=== PATIENT | male | born 1990 | race Caucasian/White ===

== ENCOUNTER 2016-07-24 13:29 | Emergency (ER) | payer OTHER ==
[2016-07-24 13:53] VITALS: RESP 18
--- NOTE | 2016-07-24 14:11 | ED ---
Psych HPI - General Chief Complaint: Psychiatric Symptoms Stated Complaint: Meth/Mental Health Time Seen by Provider: 07/24/16 14:03 Source: patient, family, RN notes reviewed Mode of arrival: ambulatory - History of Present Illness Initial Comments: 25 yo male presents to the ER with cc of drug use. Patient does drugs multiple types of drugs to help him to handle his issues with his brain. Patient cannot elaborate on this. The aunt the patient does have some psychiatric issues and the patient does have some hallucinations. Patient denies this he's never seen a counselor psychiatrist. He is never been admitted mentally. Patient was concerned because he just seems to be off so they thought that they should be evaluated. Patient denies any recent fever, chills, shortness of breath, chest pain, back pain, abdominal pain, nausea vomiting, numbness or tingling, dysuria or hematuria, constipation or diarrhea, headaches or visual changes, or any other current symptoms. - Related Data Home Medications Medication Instructions Recorded Confirmed No Known Home Medications [No 07/24/16 07/24/16 Known Home Medications] Allergies Allergy/AdvReac Type Severity Reaction Status Date / Time No Known Allergies Allergy Verified 07/24/16 14:21 Review of Systems ROS Statement: Those systems with pertinent positive or pertinent negative responses have been documented in the HPI. ROS Other: All systems not noted in ROS Statement are negative. Past Medical History Additional Past Medical History / Comment(s): LOWER BACK PROBLEMS History of Any Multi-Drug Resistant Organisms: None Reported Past Surgical History: No Surgical Hx Reported Past Psychological History: ADD/ADHD Smoking Status: Current every day smoker Past Alcohol Use History: Daily Past Drug Use History: Methamphetamine General Exam General appearance: alert, in no apparent distress ENT exam: Present: normal exam, mucous membranes moist Neck exam: Present: normal inspection. Absent: tenderness, meningismus, lymphadenopathy Respiratory exam: Present: normal lung sounds bilaterally. Absent: respiratory distress, wheezes, rales, rhonchi, stridor Cardiovascular Exam: Present: regular rate, normal rhythm, normal heart sounds. Absent: systolic murmur, diastolic murmur, rubs, gallop, clicks Neurological exam: Present: alert, oriented X3 Psychiatric exam: Present: agitated, anxious Skin exam: Present: warm, dry, intact, normal color. Absent: rash Course Vital Signs 07/24/16 13:46 Temperature 98.8 F Pulse Rate 116 H Respiratory 18 Rate Blood Pressure 124/82 O2 Sat by Pulse 100 Oximetry Medical Decision Making - Medical Decision Making 25-year-old male presents for drug abuse and psychological issues. He denies any homicidal or suicidal ideation. At this time patient is cleared to be evaluated by psychiatry. At this time patient was evaluated by psychiatry. He still denies any homicidal or suicidal ideation. Patient is alert and oriented. We did discuss the need for drug rehab. We did discuss return parameters and follow-up. Patient does contract to taking all questions have been answered. He will be discharged. - Lab Data Lab Results 07/24/16 Range/Units 13:55 Urine Opiates Screen Not Detected (NotDetected) Ur Oxycodone Screen Not Detected (NotDetected) Urine Methadone Screen Not Detected (NotDetected) Ur Propoxyphene Screen Not Detected (NotDetected) Ur Barbiturates Screen Not Detected (NotDetected) U Tricyclic Antidepress Not Detected (NotDetected) Ur Phencyclidine Scrn Not Detected (NotDetected) Ur Amphetamines Screen Detected H (NotDetected) U Methamphetamines Scrn Detected H (NotDetected) U Benzodiazepines Scrn Detected H (NotDetected) Urine Cocaine Screen Detected H (NotDetected) U Marijuana (THC) Screen Detected H (NotDetected) Disposition Clinical Impression: Polysubstance abuse Disposition: HOME SELF-CARE Condition: Stable Instructions: Polysubstance Abuse (ED) Additional Instructions: Please use medication as discussed. Please follow up with family doctor if symptoms have not improved over the next two days. Please return to the emergency room if your symptoms increase or worsen or for any other concerns. Referrals: Lu Pereira MD [STAFF PHYSICIAN] - 1-2 days Time of Disposition: 16:41
[2016-07-24 17:02] VITALS: BP 130/77; PULSE 90; TEMP 97.5
== END 2016-07-24 17:10 | disposition home or self-care (01) ==
LOC: EC 13:29
DX: F19.19 Other psychoactive substance abuse with unspecified psychoactive substance-induced disorder (principal); F17.200 Nicotine dependence, unspecified, uncomplicated
CPT/HCPCS: 80306; 82075; 99284

== ENCOUNTER 2017-08-16 12:36 | Inpatient (IN) | payer OTHER ==
[2017-08-16] MEDS ORDERED: LORazepam 2 MG/ML INJ IV STA ×2 (13:10→16:29)
[2017-08-16 13:37] LABS: Basophils % (A) 0 %; Eosinophils # (A) 0.1 k/uL (0-0.7); Eosinophils % (A) 1 %; HCT 46.6 % (39.0-53.0); HGB 16.3 gm/dL (13.0-17.5); Lymphocytes # (A) 1.5 k/uL (1.0-4.8); Lymphocytes % (A) 8 %; MCH 31.1 pg (25.0-35.0); MCHC 35.1 g/dL (31.0-37.0); MCV 88.6 fL (80.0-100.0); Mean Platelet Volume 7.1; Monocytes # (A) 1.5 k/uL (0-1.0); Monocytes % (A) 8 %; Neutrophils # (A) 16.2 k/uL (1.3-7.7); Neutrophils % (A) 83 %; Platelet Count 211 k/uL (150-450); RBC 5.25 m/uL (4.30-5.90); RDW 13.9 % (11.5-15.5); WBC 19.5 k/uL (3.8-10.6)
--- NOTE | 2017-08-16 13:43 | ED ---
General Adult HPI - General Chief complaint: Overdose Stated complaint: Overdose Time Seen by Provider: 08/16/17 13:05 Source: patient, EMS Mode of arrival: EMS Limitations: altered mental status - History of Present Illness Initial comments: This is a 27-year-old male who presents emergency department for left-sided chest pain. The patient admits to smoking meth today around 4:30 this morning. He states that when he woke up he had some left-sided chest pain. He states that it's worse with movement and palpation. He denies any associated shortness of breath. No lightheadedness or syncope. States he does not have any pain in his abdomen. No nausea, vomiting, or diarrhea. He is concerned that the meth may have been laced with some other drug so he came in emergency department. He does not admit to any other ingestions. The patient does have a history of drug abuse past. - Related Data Previous Rx's Medication Instructions Recorded Dicyclomine [Bentyl] 20 mg PO QID #20 tablet 06/22/17 Allergies Allergy/AdvReac Type Severity Reaction Status Date / Time No Known Allergies Allergy Verified 06/22/17 09:38 Review of Systems ROS Statement: Those systems with pertinent positive or pertinent negative responses have been documented in the HPI. ROS Other: All systems not noted in ROS Statement are negative. Past Medical History Additional Past Medical History / Comment(s): LOWER BACK PROBLEMS History of Any Multi-Drug Resistant Organisms: None Reported Past Surgical History: No Surgical Hx Reported Past Psychological History: ADD/ADHD Smoking Status: Current every day smoker Past Alcohol Use History: Daily Past Drug Use History: Methamphetamine General Exam - General Exam Comments Initial Comments: Constitutional: The patient is awake however will only answer questions intermittently, he is constantly moving and tremulous Appears comfortable Head: Normocephalic atraumatic, multiple superficial abrasions to the forehead and face Eyes: no conjunctival injection No scleral icterus EOMI Neck: No JVD Supple Heart: Tachycardia with regular rhythm normal S1-S2 no murmurs, there is tenderness to palpation along the left chest wall Lungs: Clear to auscultation bilaterally No wheezing No rales Abdomen: Soft nondistended nontender Extremities: Non edematous DP pulses intact Radial pulses intact Neuro: Patient is awake and arousable however only answers questions intermittently, tremulous, moves all extremities spontaneously No focal neurologic deficits Psych: Appropriate mood and affect Limitations: altered mental status Course Vital Signs 08/16/17 08/16/17 08/16/17 12:45 13:30 14:00 Temperature 100.7 F H Pulse Rate 121 H 127 H 74 Respiratory 20 18 20 Rate Blood Pressure 170/80 176/81 167/72 O2 Sat by Pulse 95 100 99 Oximetry 08/16/17 08/16/17 15:01 15:56 Temperature 100.5 F H 101.7 F H Pulse Rate 133 H 122 H Respiratory 21 24 Rate Blood Pressure 163/102 171/74 O2 Sat by Pulse 97 96 Oximetry - Reevaluation(s) Reevaluation #1: 08/16/17 15:43 Patient continues to be tremulous and agitated. Does complain of a little bit of a headache. I discussed lumbar puncture with the patient at length however he states he does not want have any of this done. He had a straight cath for urine and did not tolerate that. States he does not want any other procedures performed. The patient will be started on antibiotics due to her low-grade fever and leukocytosis with tachycardia. EKG Findings - EKG Comments: EKG Findings:: EKG showing sinus tachycardia with a rate of 104. There is no abnormal ST segment changes or T-wave inversions. QTC is 383. Other intervals normal. No ectopy. Medical Decision Making - Medical Decision Making This is a 27-year-old male who presents emergency department for left-sided chest pain. The patient was found to be febrile tachycardic. He does have some mental status changes however is able to tell me where he is in the year. He is able to repeat back without been discussing with him. I had multiple discussions with him regarding a possible lumbar puncture. The patient states that he does not want to have this performed. I discussed the risks of not having it done and not knowing if there was some type of [employer] infection and he stated he understood the risks and still did not want to have it performed. At this time going to admit him to the hospital for further monitoring. He was started on vancomycin and Rocephin empirically. Dr. Montaño who accepts the admission. Admission orders were placed. - Lab Data Result diagrams: 08/16/17 13:20 08/16/17 13:20 Lab Results 08/16/17 08/16/17 08/16/17 Range/Units 13:20 13:20 13:20 WBC 19.5 H (3.8-10.6) k/uL RBC 5.25 (4.30-5.90) m/uL Hgb 16.3 (13.0-17.5) gm/dL Hct 46.6 (39.0-53.0) % MCV 88.6 (80.0-100.0) fL MCH 31.1 (25.0-35.0) pg MCHC 35.1 (31.0-37.0) g/dL RDW 13.9 (11.5-15.5) % Plt Count 211 (150-450) k/uL Neutrophils % 83 % Lymphocytes % 8 % Monocytes % 8 % Eosinophils % 1 % Basophils % 0 % Neutrophils # 16.2 H (1.3-7.7) k/uL Lymphocytes # 1.5 (1.0-4.8) k/uL Monocytes # 1.5 H (0-1.0) k/uL Eosinophils # 0.1 (0-0.7) k/uL Basophils # 0.0 (0-0.2) k/uL PT 10.5 (9.0-12.0) sec INR 1.1 (<1.2) APTT 25.0 (22.0-30.0) sec Sodium 141 (137-145) mmol/L Potassium 3.8 (3.5-5.1) mmol/L Chloride 98 (98-107) mmol/L Carbon Dioxide 26 (22-30) mmol/L Anion Gap 17 mmol/L BUN 17 (9-20) mg/dL Creatinine 0.99 (0.66-1.25) mg/dL Est GFR (CKD-EPI)AfAm >90 (>60 ml/min/1.73 sqM) Est GFR (CKD-EPI)NonAf >90 (>60 ml/min/1.73 sqM) Glucose 98 (74-99) mg/dL Plasma Lactic Acid Jessu (0.7-2.0) mmol/L Calcium 10.1 (8.4-10.2) mg/dL Total Bilirubin 4.9 H (0.2-1.3) mg/dL AST 69 H (17-59) U/L ALT 116 H (21-72) U/L Alkaline Phosphatase 56 (38-126) U/L Troponin I (0.000-0.034) ng/mL Total Protein 8.3 H (6.3-8.2) g/dL Albumin 5.0 (3.5-5.0) g/dL Urine Color Urine Appearance (Clear) Urine pH (5.0-8.0) Ur Specific [place] (1.001-1.035) Urine Protein (Negative) Urine Glucose (UA) (Negative) Urine Ketones (Negative) Urine Blood (Negative) Urine Nitrite (Negative) Urine Bilirubin (Negative) Urine Urobilinogen (<2.0) mg/dL Ur Leukocyte Esterase (Negative) Urine RBC (0-5) /hpf Urine WBC (0-5) /hpf Urine Mucus (None) /hpf Salicylates <1.0 mg/dL Urine Opiates Screen (NotDetected) Ur Oxycodone Screen (NotDetected) Urine Methadone Screen (NotDetected) Ur Propoxyphene Screen (NotDetected) Acetaminophen <10.0 ug/mL Ur Barbiturates Screen (NotDetected) U Tricyclic Antidepress (NotDetected) Ur Phencyclidine Scrn (NotDetected) Ur Amphetamines Screen (NotDetected) U Methamphetamines Scrn (NotDetected) U Benzodiazepines Scrn (NotDetected) Urine Cocaine Screen (NotDetected) U Marijuana (THC) Screen (NotDetected) 08/16/17 08/16/17 08/16/17 Range/Units 13:20 13:20 15:05 WBC (3.8-10.6) k/uL RBC (4.30-5.90) m/uL Hgb (13.0-17.5) gm/dL Hct (39.0-53.0) % MCV (80.0-100.0) fL MCH (25.0-35.0) pg MCHC (31.0-37.0) g/dL RDW (11.5-15.5) % Plt Count (150-450) k/uL Neutrophils % % Lymphocytes % % Monocytes % % Eosinophils % % Basophils % % Neutrophils # (1.3-7.7) k/uL Lymphocytes # (1.0-4.8) k/uL Monocytes # (0-1.0) k/uL Eosinophils # (0-0.7) k/uL Basophils # (0-0.2) k/uL PT (9.0-12.0) sec INR (<1.2) APTT (22.0-30.0) sec Sodium (137-145) mmol/L Potassium (3.5-5.1) mmol/L Chloride (98-107) mmol/L Carbon Dioxide (22-30) mmol/L Anion Gap mmol/L BUN (9-20) mg/dL Creatinine (0.66-1.25) mg/dL Est GFR (CKD-EPI)AfAm (>60 ml/min/1.73 sqM) Est GFR (CKD-EPI)NonAf (>60 ml/min/1.73 sqM) Glucose (74-99) mg/dL Plasma Lactic Acid Jesus 1.3 (0.7-2.0) mmol/L Calcium (8.4-10.2) mg/dL Total Bilirubin (0.2-1.3) mg/dL AST (17-59) U/L ALT (21-72) U/L Alkaline Phosphatase (38-126) U/L Troponin I <0.012 (0.000-0.034) ng/mL Total Protein (6.3-8.2) g/dL Albumin (3.5-5.0) g/dL Urine Color Yellow Urine Appearance Clear (Clear) Urine pH 5.5 (5.0-8.0) Ur Specific [place] 1.026 (1.001-1.035) Urine Protein 2+ H (Negative) Urine Glucose (UA) Negative (Negative) Urine Ketones 3+ H (Negative) Urine Blood Trace H (Negative) Urine Nitrite Negative (Negative) Urine Bilirubin Negative (Negative) Urine Urobilinogen <2.0 (<2.0) mg/dL Ur Leukocyte Esterase Negative (Negative) Urine RBC <1 (0-5) /hpf Urine WBC 1 (0-5) /hpf Urine Mucus Occasional H (None) /hpf Salicylates mg/dL Urine Opiates Screen Not Detected (NotDetected) Ur Oxycodone Screen Not Detected (NotDetected) Urine Methadone Screen Not Detected (NotDetected) Ur Propoxyphene Screen Not Detected (NotDetected) Acetaminophen ug/mL Ur Barbiturates Screen Not Detected (NotDetected) U Tricyclic Antidepress Not Detected (NotDetected) Ur Phencyclidine Scrn Not Detected (NotDetected) Ur Amphetamines Screen Detected H (NotDetected) U Methamphetamines Scrn Detected H (NotDetected) U Benzodiazepines Scrn Not Detected (NotDetected) Urine Cocaine Screen Not Detected (NotDetected) U Marijuana (THC) Screen Not Detected (NotDetected) Disposition Clinical Impression: SIRS (systemic inflammatory response syndrome), Methamphetamine abuse Disposition: ADMITTED IP TO THIS HOSP Condition: Stable
[2017-08-16 13:46] LABS: INR 1.1 (<1.2); Prothrombin Time 10.5 sec (9.0-12.0)
[2017-08-16 13:48] LABS: ALT 116 U/L (21-72); AST 69 U/L (17-59); Acetaminophen <10.0 ug/mL; Alkaline Phosphatase 56 U/L (38-126); Anion Gap 17 mmol/L; Blood Urea Nitrogen 17 mg/dL (9-20); Calcium 10.1 mg/dL (8.4-10.2); Carbon Dioxide 26 mmol/L (22-30); Chloride 98 mmol/L (98-107); Glucose 98 mg/dL (74-99); Potassium 3.8 mmol/L (3.5-5.1); Salicylate <1.0 mg/dL; Sodium 141 mmol/L (137-145); Total Bilirubin 4.9 mg/dL (0.2-1.3); Total Protein 8.3 g/dL (6.3-8.2)
--- NOTE | 2017-08-16 14:43 | XR ---
EXAMINATION TYPE: XR chest 2V DATE OF EXAM: 08/16/2017 COMPARISON: NONE INDICATION: Chest pain TECHNIQUE: Frontal and lateral views of the chest are obtained. FINDINGS: The heart size is normal. The pulmonary vasculature is normal. The lungs are clear. Degree of inspiration is somewhat limited but adequate for the study. IMPRESSION: 1. No acute pulmonary process.
--- NOTE | 2017-08-16 14:56 | CT ---
EXAMINATION TYPE: CT brain wo con DATE OF EXAM: 08/16/2017 COMPARISON: 11/30/2012 HISTORY: Overdose. Altered mental status. Pt uncooperative and unwilling to listen to direction. CT DLP: 2284.[address] of the brain was performed. The ventricles, basal cisterns and sulci overlying the cerebral convexities demonstrate a normal appe arance. There is no evidence for intracranial hemorrhage or sulcal effacement. No mass effects are seen. Osseous calvarium is intact. If symptoms persist consider MRI as clinically warranted. IMPRESSION: 1. No acute intracranial process is seen at this time.
[2017-08-16] MEDS ORDERED: KETOROLAC 30 MG/ML 1 ML VIAL IVP STA (15:02)
[2017-08-16 15:19] LABS: Appearance,Urine Clear (Clear); Bilirubin,Urine Negative (Negative); Blood,Urine Trace (Negative); Color,Urine Yellow; Glucose,Urine (UA) Negative (Negative); Ketones,Urine 3+ (Negative); Leukocyte Esterase,Urine Negative (Negative); Mucus,Urine Occasional /hpf; Nitrite,Urine Negative (Negative); PH, Urine 5.5 (5.0-8.0); Protein,Urine 2+ (Negative); RBC,Urine <1 /hpf (0-5); Specific Gravity,Urine 1.026 (1.001-1.035); Urobilinogen,Urine <2.0 mg/dL (<2.0); WBC,Urine 1 /hpf (0-5)
[2017-08-16] MEDS ORDERED: VANCOMYCIN IV PER PHARMACY 1 EACH MISC MISCELLANE PRN (15:26)
[2017-08-16 15:27] LABS: Cocaine Screen,Urine Not Detected (NotDetected); Phencyclidine Screen,Urine Not Detected (NotDetected); Urn Cannabinoid Scrn Not Detected (NotDetected)
[2017-08-16 15:28] LABS: Amphetamine Screen,Urine Detected (NotDetected); Barbiturate Screen,Urine Not Detected (NotDetected); Benzodiazepines Screen,Urine Not Detected (NotDetected); Methadone Screen, Urine Not Detected (NotDetected); Opiate Screen,Urine Not Detected (NotDetected); Oxycodone Screen, Urine Not Detected (NotDetected); Tricyclic Antidepressant,Urine Not Detected (NotDetected)
[2017-08-16] MEDS ORDERED: SODIUM CHLORIDE 0.9% 1,000 ML IV ONE (15:28)
[2017-08-16] MEDS ORDERED: VANCOMYCIN 1,500 MG in SODIUM CHLORIDE 0.9% 250 ML IVPB STA (15:30)
[2017-08-16] MEDS ORDERED: cefTRIAXone IN SWFI 1,000 MG/10 ML SYRINGE IVP ONE (15:30)
[2017-08-16] MEDS ORDERED: ACETAMINOPHEN IV (For NPO) 1,000 MG in EMPTY BAG 1 BAG IVPB STA (15:54)
[2017-08-16 16:09] LABS: Glucose,Whole Blood 107 mg/dL (75-99)
[2017-08-16] MEDS: SODIUM CHLORIDE 0.9% 1,000 ML IV SCH (16:34)
[2017-08-16] MEDS ORDERED: HALOPERIDOL LACTATE 5 MG/ML 1 ML VIAL IVP STA (18:43)
[2017-08-16] MEDS: FAMOTIDINE 20 MG TAB PO SCH (22:14)
[2017-08-17] MEDS: VANCOMYCIN 1,500 MG in SODIUM CHLORIDE 0.9% 250 ML IVPB SCH ×2 (00:50→08:02)
[2017-08-17] MEDS: SODIUM CHLORIDE 0.9% 1,000 ML IV SCH ×4 (00:54→18:45)
[2017-08-17 06:00] LABS: Basophils % (A) 0 %; Eosinophils # (A) 0.1 k/uL (0-0.7); Eosinophils % (A) 1 %; HCT 42.7 % (39.0-53.0); HGB 14.8 gm/dL (13.0-17.5); Lymphocytes # (A) 1.5 k/uL (1.0-4.8); Lymphocytes % (A) 16 %; MCH 31.5 pg (25.0-35.0); MCHC 34.6 g/dL (31.0-37.0); MCV 90.9 fL (80.0-100.0); Mean Platelet Volume 7.2; Monocytes % (A) 11 %; Neutrophils # (A) 6.4 k/uL (1.3-7.7); Neutrophils % (A) 69 %; Platelet Count 170 k/uL (150-450); RBC 4.69 m/uL (4.30-5.90); WBC 9.3 k/uL (3.8-10.6)
[2017-08-17 06:14] LABS: Anion Gap 10 mmol/L; Blood Urea Nitrogen 19 mg/dL (9-20); Carbon Dioxide 27 mmol/L (22-30); Chloride 104 mmol/L (98-107); Glucose 75 mg/dL (74-99); Potassium 4.1 mmol/L (3.5-5.1); Sodium 141 mmol/L (137-145)
[2017-08-17 06:28] VITALS: BMI 29.3
[2017-08-17] MEDS: FAMOTIDINE 20 MG TAB PO SCH ×2 (08:02→19:44)
[2017-08-17] MEDS ORDERED: cefTRIAXone IN SWFI 1,000 MG/10 ML SYRINGE IVP SCH (09:00)
[2017-08-17] MEDS ORDERED: KETOROLAC 30 MG/ML 1 ML VIAL IVP STA (12:00)
--- NOTE | 2017-08-17 14:24 | P.CONS ---
History of Present Illness - Reason for Consult Consult date: 08/17/17 - Chief Complaint fever - History of Present Illness 27 year old male presents to the emergency center with a sudden onset of lower left-sided chest pain and because it did not improve who presented to the emergency center. Patient relates that several hours before the onset of the pain he did utilize Crystal methamphetamine. He is a frequent user of the drug. This is however the first time he's had such a significant reaction.Because the discomfort was persistent he presented to the emergency center. At that time he had evidence of some fever 101.7 was tachycardic and was evidence of a leukocytosis. Because of this he was concerns to underlying infection and sepsis. Apparently when he first presented there was also some concerns about the possibility of a central nervous system infection and lumbar puncture was offered which he refused. He was not able to provide a urine specimen and a straight cath specimen was obtained. After that the patient does not want any further invasive procedures. At the time of his evaluation he is feeling considerably better. Fever has resolved. His leukocytosis is starting to improve her ready and he is hemodynamically stable. Only complaint is that with utilization of the Crystal methamphetamine is he is having some oral cavity and carious tooth difficulties, concerned that there could be a potential source of infection. Review of Systems HEENT:Denies headache or acute visual change. Denies sinus discomforts. Denies neck stiffness or pain. Denies significant oral cavity pain. Denies difficulty on swallowing.as per the HPI does have difficulties with tooth problems Lungs: he as noted was having chest pain which is now improving. is not having cough or sputum production no hemoptysis. Cardiovascular: currently has improvement of the chest pain. No orthopnea dyspnea or syncope. Gastrointestinal:Denies nausea, vomiting, diarrhea, constipation, hematemesis, melena, hematochezia. No no significant change of bowel habit noticed. Musculoskeletal: denies significant myalgias or arthralgias. No new joint swelling. Denies new back pain. Skin: Denies new rash or lesions. No new ulcers or wounds are related.. Neuro: Denies headache or visual change. Denies any new onset weakness or difficulty with ambulation. Denies falls or seizures. Psychiatric:chronic anxiety Endocrine: Denies significant fatigue, denies significant weight loss or weight gain. Past Medical History Additional Past Medical History / Comment(s): LOWER BACK PROBLEMS History of Any Multi-Drug Resistant Organisms: None Reported Past Surgical History: No Surgical Hx Reported Past Psychological History: ADD/ADHD Additional Psychological History / Comment(s): originally from [place]. He came to [place] to be with his grandmother. He has a 3-year-old child that lives with his mother in [place]. Works for [employer]. Tobacco smoker. Utilize crystal methamphetamine denies heroin or other injection drug use. Denies current sex partner. Denies alcohol abuse. No experience. No travel history. No animal exposures Smoking Status: Current every day smoker Past Alcohol Use History: Daily Past Drug Use History: Methamphetamine - Past Family History Mother Family Medical History: No Reported History Medications and Allergies Home Medications and Allergies Comment(s): Current Medications Ceftriaxone Sodium (Rocephin) 1,000 mg IVP Q24HR [facility] Last Admin: 08/17/17 08:02 Dose: 1,000 mg Famotidine (Pepcid) 20 mg PO BID [facility] Last Admin: 08/17/17 08:02 Dose: 20 mg Vancomycin HCl 1,500 mg/ (Sodium Chloride) 250 mls @ 125 mls/hr IVPB Q8HR [facility] Last Admin: 08/17/17 08:02 Dose: 125 mls/hr Sodium Chloride (Saline 0.9%) 1,000 mls @ 150 mls/hr IV .Q6H40M [facility] Last Admin: 08/17/17 12:06 Dose: 150 mls/hr Miscellaneous Information (Vancomycin Trough Due) 0 each MISCELLANE DIRECTED ONE Stop: 08/18/17 07:01 Home Medications Medication Instructions Recorded Confirmed Type No Known Home Medications [No 08/16/17 08/16/17 History Known Home Medications] Allergies Allergy/AdvReac Type Severity Reaction Status Date / Time No Known Allergies Allergy Verified 06/22/17 09:38 Physical Exam Vitals: Vital Signs Temp Pulse Pulse Resp BP BP Pulse Ox 08/17/17 12:00 98.4 F 97 16 117/71 94 L 08/17/17 08:00 99.2 F 107 H 16 118/76 94 L 08/17/17 04:45 98.2 F 94 18 107/58 94 L 08/17/17 02:30 86 18 08/16/17 22:30 97.4 F L 91 18 117/69 97 08/16/17 22:00 99.3 F 92 16 115/56 98 08/16/17 19:57 99.0 F 103 H 16 122/58 97 08/16/17 19:29 103 H 20 123/59 98 08/16/17 18:52 133 H 24 140/68 99 08/16/17 17:31 99.9 F H 134 H 20 142/77 96 08/16/17 17:07 100.6 F H 08/16/17 16:58 118 H 22 147/77 97 08/16/17 16:15 125 H 24 154/73 96 08/16/17 15:56 101.7 F H 122 H 24 171/74 96 08/16/17 15:01 100.5 F H 133 H 21 163/102 97 Intake and Output 08/16/17 08/17/17 08/17/17 22:59 06:59 14:59 Intake Total 1440 2445 Output Total 350 Balance -350 1440 2445 Intake: Intake, IV Titration 1200 1325 Amount Sodium Chloride 0.9% 1, 1200 1200 000 ml @ 150 mls/hr IV . Q6H40M [facility]YUDMILA Rx#:[id number] Vancomycin 1,500 mg In 125 Sodium Chloride 0.9% 250 ml @ 125 mls/hr IVPB Q8HR LYUDMILA Rx#:[id number] Oral 240 1120 Output: Urine 350 Straight 350 Other: Voiding Method Toilet Toilet Toilet # Voids 3 Weight 95.5 kg 95.5 kg 27-year-old male who has a muscular build, is in no distress HEENT: Anicteric conjunctiva are pink and moist nasal mucosa grossly intact without significant lesions, there is no thrush.dentition is poor for age fractured carious right lower molar Neck: The neck is supple without significant lymphadenopathy or thyromegaly. Lungs: Good bilateral air entry without significant crackles or wheezing. There is no significant bronchial sounds. There is no egophony or dullness. Heart: Regular rate and rhythm with an audible S1-S2, no S3 no S4. There is no significant murmur click or rub, PMI was nondisplaced. Abdomen: Positive bowel sounds soft and nontender without palpable masses or organomegaly. There was no guarding or rebound. Extremities: The upper extremities have excellent pulses they are symmetric, no significant petechiae or telangiectasia. No splinter hemorrhages were noted. The lower extremities are free from significant edema. The peripheral pulses were 2+ and symmetric. Neuro: Awake alert oriented to person place and time. There are no acute new gross focal sensory motor deficits. skin patient is evidence of multiple skin lesions on his face and scalp and upper chest. he relates these have worsened recently in time Results CBC & Chem 7: 08/17/17 05:38 08/17/17 05:38 Labs: Abnormal Lab Results - Last 24 Hours (Table) 08/16/17 08/16/17 Range/Units 15:05 15:49 POC Glucose (mg/dL) 107 H (75-99) mg/dL Urine Protein 2+ H (Negative) Urine Ketones 3+ H (Negative) Urine Blood Trace H (Negative) Urine Mucus Occasional H (None) /hpf Ur Amphetamines Screen Detected H (NotDetected) U Methamphetamines Scrn Detected H (NotDetected) Laboratory Results WBC 9.3 k/uL (3.8-10.6) 08/17/17 05:38 RBC 4.69 m/uL (4.30-5.90) 08/17/17 05:38 Hgb 14.8 gm/dL (13.0-17.5) 08/17/17 05:38 Hct 42.7 % (39.0-53.0) 08/17/17 05:38 MCV 90.9 fL (80.0-100.0) 08/17/17 05:38 MCH 31.5 pg (25.0-35.0) 08/17/17 05:38 MCHC 34.6 g/dL (31.0-37.0) 08/17/17 05:38 RDW 14.0 % (11.5-15.5) 08/17/17 05:38 Plt Count 170 k/uL (150-450) 08/17/17 05:38 Neutrophils % 69 % 08/17/17 05:38 Lymphocytes % 16 % 08/17/17 05:38 Monocytes % 11 % 08/17/17 05:38 Eosinophils % 1 % 08/17/17 05:38 Basophils % 0 % 08/17/17 05:38 Neutrophils # 6.4 k/uL (1.3-7.7) 08/17/17 05:38 Lymphocytes # 1.5 k/uL (1.0-4.8) 08/17/17 05:38 Monocytes # 1.0 k/uL (0-1.0) 08/17/17 05:38 Eosinophils # 0.1 k/uL (0-0.7) 08/17/17 05:38 Basophils # 0.0 k/uL (0-0.2) 08/17/17 05:38 PT 10.5 sec (9.0-12.0) 08/16/17 13:20 INR 1.1 (<1.2) 08/16/17 13:20 APTT 25.0 sec (22.0-30.0) 08/16/17 13:20 Sodium 141 mmol/L (137-145) 08/17/17 05:38 Potassium 4.1 mmol/L (3.5-5.1) 08/17/17 05:38 Chloride 104 mmol/L (98-107) 08/17/17 05:38 Carbon Dioxide 27 mmol/L (22-30) 08/17/17 05:38 Anion Gap 10 mmol/L 08/17/17 05:38 BUN 19 mg/dL (9-20) 08/17/17 05:38 Creatinine 0.80 mg/dL (0.66-1.25) 08/17/17 05:38 Est GFR (CKD-EPI)AfAm >90 (>60 ml/min/1.73 sqM) 08/17/17 05:38 Est GFR (CKD-EPI)NonAf >90 (>60 ml/min/1.73 sqM) 08/17/17 05:38 Glucose 75 mg/dL (74-99) 08/17/17 05:38 POC Glucose (mg/dL) 107 mg/dL (75-99) H 08/16/17 15:49 POC Glu [employer] Supervisor ID Delio Hitchcock 08/16/17 15:49 Plasma Lactic Acid Jesus 1.3 mmol/L (0.7-2.0) 08/16/17 15:45 Calcium 9.0 mg/dL (8.4-10.2) 08/17/17 05:38 Total Bilirubin 4.9 mg/dL (0.2-1.3) H 08/16/17 13:20 AST 69 U/L (17-59) H 08/16/17 13:20 ALT 116 U/L (21-72) H 08/16/17 13:20 Alkaline Phosphatase 56 U/L (38-126) 08/16/17 13:20 Troponin I <0.012 ng/mL (0.000-0.034) 08/16/17 13:20 Total Protein 8.3 g/dL (6.3-8.2) H 08/16/17 13:20 Albumin 5.0 g/dL (3.5-5.0) 08/16/17 13:20 Urine Color Yellow 08/16/17 15:05 Urine Appearance Clear (Clear) 08/16/17 15:05 Urine pH 5.5 (5.0-8.0) 08/16/17 15:05 Ur Specific [place] 1.026 (1.001-1.035) 08/16/17 15:05 Urine Protein 2+ (Negative) H 08/16/17 15:05 Urine Glucose (UA) Negative (Negative) 08/16/17 15:05 Urine Ketones 3+ (Negative) H 08/16/17 15:05 Urine Blood Trace (Negative) H 08/16/17 15:05 Urine Nitrite Negative (Negative) 08/16/17 15:05 Urine Bilirubin Negative (Negative) 08/16/17 15:05 Urine Urobilinogen <2.0 mg/dL (<2.0) 08/16/17 15:05 Ur Leukocyte Esterase Negative (Negative) 08/16/17 15:05 Urine RBC <1 /hpf (0-5) 08/16/17 15:05 Urine WBC 1 /hpf (0-5) 08/16/17 15:05 Urine Mucus Occasional /hpf (None) H 08/16/17 15:05 Salicylates <1.0 mg/dL 08/16/17 13:20 Urine Opiates Screen Not Detected (NotDetected) 08/16/17 15:05 Ur Oxycodone Screen Not Detected (NotDetected) 08/16/17 15:05 Urine Methadone Screen Not Detected (NotDetected) 08/16/17 15:05 Ur Propoxyphene Screen Not Detected (NotDetected) 08/16/17 15:05 Acetaminophen <10.0 ug/mL 08/16/17 13:20 Ur Barbiturates Screen Not Detected (NotDetected) 08/16/17 15:05 U Tricyclic Antidepress Not Detected (NotDetected) 08/16/17 15:05 Ur Phencyclidine Scrn Not Detected (NotDetected) 08/16/17 15:05 Ur Amphetamines Screen Detected (NotDetected) H 08/16/17 15:05 U Methamphetamines Scrn Detected (NotDetected) H 08/16/17 15:05 U Benzodiazepines Scrn Not Detected (NotDetected) 08/16/17 15:05 Urine Cocaine Screen Not Detected (NotDetected) 08/16/17 15:05 U Marijuana (THC) Screen Not Detected (NotDetected) 08/16/17 15:05 Chest x-ray: image reviewed (no evidence of any infiltrate) CT Scan - head: report reviewed (normal) Assessment and Plan (1) Methamphetamine abuse Current Visit: Yes Status: Acute Code(s): F15.10 - OTHER STIMULANT ABUSE, UNCOMPLICATED SNOMED Code(s): 195718287 (2) Fever Narrative/Plan: 27-year-old male presents in emergency center with complaints of some chest pain to the left side lower side of his chest. This has not happened to him in the past and he was concerned. He does utilize Crystal methamphetamine and this is the first time after utilizing the drug that he developed this discomfort. The pain level was quite severe and constantly he presented to the emergency center. At his presentation there was evidence of a temperature 101.7 as well as tachycardia and leukocytosis at 19.5. In the hour since his presentation he is definitely feeling better. His fever has resolved, his leukocytosis has resolved and is feeling better. It is likely that this entire symptom complex was from utilization of a amphetamine which can cause all of these findings. At this time the only potential source of infection is related to his oral cavity with his very poor dentition which is also likely on the basis of his Crystal methamphetamine use. If this time will be reasonable to offer his antibiotic therapy to some oral Augmentin and he should see a dentist in the outpatient setting. At this time there is not a maggi abscess that is in need of any acute surgical intervention. The patient however does have an elevated total bilirubin as well as evidence of elevated AST ALT. With this there is concern for the possibility of underlying hepatitis. It could be simply drug-induced from the Crystal methamphetamine, however with hepatitis A outbreak in [facility] must be considered and the acute hepatitis panel has been requested. Current Visit: Yes Status: Acute Code(s): R50.9 - FEVER, UNSPECIFIED SNOMED Code(s): 436165122 (3) Leukocytosis Current Visit: Yes Status: Acute Code(s): D72.829 - ELEVATED WHITE BLOOD CELL COUNT, UNSPECIFIED SNOMED Code(s): 065274213
--- NOTE | 2017-08-17 15:12 | P.HPIM ---
History of Present Illness H&P Date: 08/16/17 Chief Complaint: Mental mental status Patient is a 27-year-old male with a known history of ADD, lower back pain and substance abuse presented to ER with complaints of left-sided chest pain associated with some nausea. Patient was also febrile on admission with a T- max of 101.7. Patient denied any complaints of shortness of breath. Apparently patient admits that he spoke methamphetamine around 4:30 this morning. He states that when he woke up he had some left-sided chest pain. He states that it's worse with movement and palpation. No lightheadedness or syncope. States he does not have any pain in his abdomen. No nausea, vomiting , or diarrhea. He is concerned that the meth may have been laced with some other drug so he came in emergency department. Due to altered mental status and fever patient was offered to get lumbar puncture but patient refused. EKG showed sinus tachycardia Chest x-ray showed no cardiomegaly pulmonary process acute CT head showed no acute intracranial process WBC 19.9 Troponin negative Elevated AST and ALTs and bilirubin UDS is positive for amphetamines and methamphetamines Review of Systems Constitutional: Patient denies any fever or chills . No generalized weakness or weight loss. Abdomen: Patient does have nausea. No abdominal pain no diarrhea Cardiovascular: Patient does have left-sided chest pain. With some nausea. No leg swelling no palpitations Respiratory: patient denied any cough is from production. No shortness of breath Neurologic: Patient denied any numbness or tingling headache. Complete review of systems could not be obtained from the patient at this time due to intoxication Past Medical History Additional Past Medical History / Comment(s): LOWER BACK PROBLEMS History of Any Multi-Drug Resistant Organisms: None Reported Past Surgical History: No Surgical Hx Reported Past Psychological History: ADD/ADHD Smoking Status: Current every day smoker Past Alcohol Use History: Daily Past Drug Use History: Methamphetamine - Past Family History Mother Family Medical History: No Reported History Medications and Allergies Home Medications Medication Instructions Recorded Confirmed Type No Known Home Medications [No 08/16/17 08/16/17 History Known Home Medications] Allergies Allergy/AdvReac Type Severity Reaction Status Date / Time No Known Allergies Allergy Verified 06/22/17 09:38 Physical Exam Vitals: Vital Signs Temp Pulse Resp BP Pulse Ox 08/16/17 19:57 99.0 F 103 H 16 122/58 97 06/07/18 19:29 103 H 20 123/59 98 08/16/17 18:52 133 H 24 140/68 99 08/16/17 17:31 99.9 F H 134 H 20 142/77 96 08/16/17 17:07 100.6 F H 08/16/17 16:58 118 H 22 147/77 97 08/16/17 16:15 125 H 24 154/73 96 08/16/17 15:56 101.7 F H 122 H 24 171/74 96 08/16/17 15:01 100.5 F H 133 H 21 163/102 97 08/16/17 14:00 74 20 167/72 99 08/16/17 13:30 127 H 18 176/81 100 08/16/17 12:45 100.7 F H 121 H 20 170/80 95 Intake and Output 08/16/17 08/16/17 08/16/17 06:59 14:59 22:59 Output Total 350 Balance -350 Output: Urine 350 Straight 350 Other: Weight 97.522 kg PHYSICAL EXAMINATION: Patient is lying in the bed comfortably, no acute distress, awake alert and oriented but confused and constantly moving in the bed with agitation.. HEENT: Normocephalic. Neck is supple. Pupils reactive. Nostrils clear. Oral cavity is moist. Ears reveal no drainage. Neck reveals no JVD, carotid bruits, or thyromegaly. CHEST EXAMINATION: Trachea is central. Symmetrical expansion. Lung marinelli clear to auscultation and percussion. CARDIAC: Normal S1, S2 with no gallops. No murmurs ABDOMEN: Soft. Bowel sounds normal. No organomegaly. No abdominal bruits. Extremities: reveal no edema. No clubbing or cyanosis Neurologically awake, alert, oriented x3 with well-coordinated movements. No focal deficits noted Skin: No rash or skin lesions. Psychiatric: Cooperative Could not be a cyst completely Musculoskeletal: No joint swelling or deformity. Normal range of motion. Results CBC & Chem 7: 08/17/17 05:38 08/17/17 05:38 Labs: Abnormal Lab Results - Last 24 Hours (Table) 08/16/17 08/16/17 08/16/17 Range/Units 13:20 13:20 15:05 WBC 19.5 H (3.8-10.6) k/uL Neutrophils # 16.2 H (1.3-7.7) k/uL Monocytes # 1.5 H (0-1.0) k/uL POC Glucose (mg/dL) (75-99) mg/dL Total Bilirubin 4.9 H (0.2-1.3) mg/dL AST 69 H (17-59) U/L ALT 116 H (21-72) U/L Total Protein 8.3 H (6.3-8.2) g/dL Urine Protein 2+ H (Negative) Urine Ketones 3+ H (Negative) Urine Blood Trace H (Negative) Urine Mucus Occasional H (None) /hpf Ur Amphetamines Screen Detected H (NotDetected) U Methamphetamines Scrn Detected H (NotDetected) 08/16/17 Range/Units 15:49 WBC (3.8-10.6) k/uL Neutrophils # (1.3-7.7) k/uL Monocytes # (0-1.0) k/uL POC Glucose (mg/dL) 107 H (75-99) mg/dL Total Bilirubin (0.2-1.3) mg/dL AST (17-59) U/L ALT (21-72) U/L Total Protein (6.3-8.2) g/dL Urine Protein (Negative) Urine Ketones (Negative) Urine Blood (Negative) Urine Mucus (None) /hpf Ur Amphetamines Screen (NotDetected) U Methamphetamines Scrn (NotDetected) Thrombosis Risk Factor Assmnt - DVT/VTE Prophylaxis DVT/VTE Prophylaxis: Pharmacologic Prophylaxis ordered Assessment and Plan Assessment: Altered mental status possibly secondary to methamphetamine use Fever with altered mental status and leukocytosis. Suspected meningitis but patient refused lumbar puncture Leukocytosis could be reactive versus infection UDS positive for methamphetamines Elevated liver enzymes. Likely due to drug use. No history of hepatitis in the past. Hyperbilirubinemia ADD/ADHD DVT prophylaxis Plan: Patient will be continued on empiric antibiotics in the form of vancomycin and ceftriaxone. IV fluids. Symptomatic management for nausea and pain management. Follow-up CBC and CMP. ID was consulted for further evaluation. Continue to follow closely. Time with Patient: Greater than 30
--- NOTE | 2017-08-17 15:30 | P.PN ---
Subjective Progress Note Date: 08/17/17 Principal diagnosis: Altered mental status and substance use Patient is a 27-year-old male with a known history of ADD, lower back pain and substance abuse presented to ER with complaints of left-sided chest pain associated with some nausea. Patient was also febrile on admission with a T- max of 101.7. Patient denied any complaints of shortness of breath. Apparently patient admits that he spoke methamphetamine around 4:30 this morning. He states that when he woke up he had some left-sided chest pain. He states that it's worse with movement and palpation. No lightheadedness or syncope. States he does not have any pain in his abdomen. No nausea, vomiting , or diarrhea. He is concerned that the meth may have been laced with some other drug so he came in emergency department. Due to altered mental status and fever patient was offered to get lumbar puncture but patient refused. EKG showed sinus tachycardia Chest x-ray showed no cardiomegaly pulmonary process acute CT head showed no acute intracranial process WBC 19.9 Troponin negative Elevated AST and ALTs and bilirubin UDS is positive for amphetamines and methamphetamines 08/17/2017 Patient today is more awake and oriented. Agitation has improved. Otherwise patient did complain of tooth pain this morning. No overnight fever. Leukocytosis resolved. Patient was seen by ID. 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 Patient was started on Augmentin for for possible tooth infection. Unlikely abscess at this time. Otherwise patient is being continued on sitter. Anticipate discharge in next 24 hours with marked clinical improvement. No complaints of of chest pain or shortness of breath. No nausea vomiting, abdominal pain. Tolerating oral diet. All other review of systems negative except the above next and Current medications reviewed. Active Medications Generic Name Dose Route Start Last Admin Trade Name Freq PRN Reason Stop Dose Admin Amoxicillin/Clavulanate Potassium 1 each 08/17/17 21:00 Augmentin 875-125 PO Q12HR LYUDMILA Famotidine 20 mg 08/16/17 21:00 08/17/17 08:02 Pepcid PO 20 mg BID LYUDMILA Administration Sodium Chloride 1,000 mls @ 150 mls/hr 08/16/17 16:00 08/17/17 12:06 Saline 0.9% IV 150 mls/hr .Q6H40M LYUDMILA Administration Objective - Vital Signs Vital signs: Vital Signs Temp 98.4 F 08/17/17 12:00 Pulse 97 08/17/17 12:00 Resp 16 08/17/17 12:00 BP 117/71 08/17/17 12:00 Pulse Ox 94 L 08/17/17 12:00 Intake & Output 08/16/17 08/17/17 08/17/17 18:59 06:59 18:59 Intake Total 1440 2445 Output Total 350 Balance -350 1440 2445 Weight 95.5 kg 95.5 kg Intake: Intake, IV Titration 1200 1325 Amount Sodium Chloride 0.9% 1, 1200 1200 000 ml @ 150 mls/hr IV . Q6H40M LYUDMILA Rx#:[id number] Vancomycin 1,500 mg In 125 Sodium Chloride 0.9% 250 ml @ 125 mls/hr IVPB Q8HR LYUDMILA Rx#:[id number] Oral 240 1120 Output: Urine 350 Straight 350 Other: Voiding Method Toilet Toilet # Voids 3 - Exam PHYSICAL EXAMINATION: Patient is lying in the bed comfortably, no acute distress, awake alert and oriented. Mild confusion.. HEENT: Normocephalic. Neck is supple. Pupils reactive. Nostrils clear. Oral cavity is moist. Ears reveal no drainage. Neck reveals no JVD, carotid bruits, or thyromegaly. CHEST EXAMINATION: Trachea is central. Symmetrical expansion. Lung marinelli clear to auscultation and percussion. CARDIAC: Normal S1, S2 with no gallops. No murmurs ABDOMEN: Soft. Bowel sounds normal. No organomegaly. No abdominal bruits. Extremities: reveal no edema. No clubbing or cyanosis Neurologically awake, alert, oriented x3 with well-coordinated movements. No focal deficits noted Skin: No rash or skin lesions. Psychiatric: Cooperative Denied any suicidal ideation Musculoskeletal: No joint swelling or deformity. Normal range of motion. - Labs CBC & Chem 7: 08/17/17 05:38 08/17/17 05:38 Labs: Abnormal Lab Results - Last 24 Hours (Table) 08/16/17 08/16/17 Range/Units 15:05 15:49 POC Glucose (mg/dL) 107 H (75-99) mg/dL Urine Protein 2+ H (Negative) Urine Ketones 3+ H (Negative) Urine Blood Trace H (Negative) Urine Mucus Occasional H (None) /hpf Ur Amphetamines Screen Detected H (NotDetected) U Methamphetamines Scrn Detected H (NotDetected) Assessment and Plan Assessment: Altered mental status possibly secondary to methamphetamine use Fever with altered mental status and leukocytosis. Likely due to intoxication. Suspected meningitis but patient refused lumbar puncture. Unlikely infection. Leukocytosis could be reactive versus infection. Resolved Tooth pain and poor dentition. No evidence of abscess UDS positive for methamphetamines Elevated liver enzymes. Likely due to drug use. No history of hepatitis in the past. Ordered acute hepatitis panel Hyperbilirubinemia ADD/ADHD DVT prophylaxis Plan: Patient will be continued on antibiotics in the form of Augmentin for possible tooth infection. Unlikely meningitis. DC'd vancomycin and ceftriaxone. IV fluids. Symptomatic management for nausea and pain management. Follow-up CBC and CMP. ID is following.. Continue to follow closely and further recommendations based on the clinical course.. Time with Patient: Greater than 30
[2017-08-17] MEDS: AMOXIC-POT CLAV 875-125MG 1 EACH TAB PO SCH (19:44)
[2017-08-18] MEDS: SODIUM CHLORIDE 0.9% 1,000 ML IV SCH ×2 (03:10→08:09)
[2017-08-18 04:01] VITALS: RESP 16
[2017-08-18 04:15] LABS: Hepatitis A Antibody IgM Non-Reactive (Non-Reactive); Hepatitis B Core IgM Non-Reactive (Non-Reactive)
[2017-08-18] MEDS ORDERED: VANCOMYCIN TROUGH DUE 1 EACH MISC MISCELLANE ONE (07:00)
[2017-08-18] MEDS: AMOXIC-POT CLAV 875-125MG 1 EACH TAB PO SCH (08:09)
[2017-08-18] MEDS: FAMOTIDINE 20 MG TAB PO SCH (08:09)
[2017-08-18] MEDS ORDERED: IBUPROFEN 600 MG TAB PO SCH (09:00)
[2017-08-18] MEDS ORDERED: MINERAL OIL-WHITE PETROLATUM 120 GM JAR TOPICAL PRN (13:34)
--- NOTE | 2017-08-18 15:38 | P.DS ---
Providers Date of admission: 08/16/17 16:00 Expected date of discharge: 08/18/17 Attending physician: Hiram Montaño Consults: 08/16/17 16:00 Consult Physician Routine Consulting Provider: Hiren Spann Consult Reason/Comments: Fever, MS changes Do you want consulting provider notified?: Yes Primary care physician: Stated None Hospital Course: Discharge diagnosis Altered mental status possibly secondary to methamphetamine use Fever with altered mental status and leukocytosis. Likely due to intoxication. Suspected meningitis but patient refused lumbar puncture. Unlikely infection. Resolving now Leukocytosis could be reactive versus infection. Resolved Tooth pain and poor dentition. Possible infection. No evidence of abscess UDS positive for methamphetamines Elevated liver enzymes. Hepatitis C. New Diagnosis Hyperbilirubinemia ADD/ADHD DVT prophylaxis Patient is a 27-year-old male with a known history of ADD, lower back pain and substance abuse presented to ER with complaints of left-sided chest pain associated with some nausea. Patient was also febrile on admission with a T- max of 101.7. Patient denied any complaints of shortness of breath. Apparently patient admits that he spoke methamphetamine around 4:30 this morning. He states that when he woke up he had some left-sided chest pain. He states that it's worse with movement and palpation. No lightheadedness or syncope. States he does not have any pain in his abdomen. No nausea, vomiting , or diarrhea. He is concerned that the meth may have been laced with some other drug so he came in emergency department. Due to altered mental status and fever patient was offered to get lumbar puncture but patient refused. EKG showed sinus tachycardia Chest x-ray showed no cardiomegaly pulmonary process acute CT head showed no acute intracranial process WBC 19.9 Troponin negative Elevated AST and ALTs and bilirubin UDS is positive for amphetamines and methamphetamines 08/17/2017 Patient today is more awake and oriented. Agitation has improved. Otherwise patient did complain of tooth pain this morning. No overnight fever. Leukocytosis resolved. Patient was seen by ID. Unlikely [employer]OR infection and antibiotics were discontinued. Patient was started on Augmentin for for possible tooth infection. Unlikely abscess at this time. Otherwise patient is being continued on sitter. Anticipate discharge in next 24 hours with marked clinical improvement. 08/18/2017 Patient is more awake and oriented. Able to tolerate oral diet and sit on the side of the bed. Tooth pain improved. No fever. No acute overnight issues. Patient is stable to be discharged home. Patient was recommended to follow with ID clinic for hepatitis C treatment. Plan: Patient was continued on antibiotics in the form of Augmentin for possible tooth infection. Unlikely meningitis. DC'd vancomycin and ceftriaxone. IV fluids. Symptomatic management for nausea and pain management with Motrin. Followed-up CBC and CMP. Leukocytosis resolved. Patient was seen by ID. Currently patient is stable to be discharged home. PHYSICAL EXAMINATION: Patient is lying in the bed comfortably, no acute distress, awake alert and oriented.. HEENT: Normocephalic. Neck is supple. Pupils reactive. Nostrils clear. Oral cavity is moist. Poor dentition. Ears reveal no drainage. Neck reveals no JVD, carotid bruits, or thyromegaly. CHEST EXAMINATION: Trachea is central. Symmetrical expansion. Lung marinelli clear to auscultation and percussion. CARDIAC: Normal S1, S2 with no gallops. No murmurs ABDOMEN: Soft. Bowel sounds normal. No organomegaly. No abdominal bruits. Extremities: reveal no edema. No clubbing or cyanosis Neurologically awake, alert, oriented x3 with well-coordinated movements. No focal deficits noted Skin: No rash or skin lesions. Psychiatric: Coperative. Nonsuicidal Musculoskeletal: No joint swelling or deformity. Normal range of motion. Vital Signs - 24 hr 08/17/17 08/17/17 08/17/17 16:00 19:49 19:51 Temperature 97.4 F L 97.9 F Pulse Rate [ 81 90 90 Right Pulse Oximetery] Respiratory 16 18 18 Rate Blood Pressure 124/69 128/69 [Right Arm Supine] O2 Sat by Pulse 93 L 100 Oximetry 08/18/17 08/18/17 08/18/17 00:00 03:59 04:00 Temperature 97.6 F 97.9 F Pulse Rate [ 81 82 80 Right Pulse Oximetery] Respiratory 18 16 16 Rate Blood Pressure 130/87 125/60 [Right Arm Supine] O2 Sat by Pulse 100 98 Oximetry 08/18/17 08/18/17 08:00 12:00 Temperature 98.0 F 98.0 F Pulse Rate [ 101 H 92 Right Pulse Oximetery] Respiratory 16 16 Rate Blood Pressure 138/89 148/70 [Right Arm Supine] O2 Sat by Pulse 94 L 96 Oximetry Patient Condition at Discharge: Stable Plan - Discharge Summary Discharge Rx Participant: No New Discharge Prescriptions: New Amoxic-Pot Clav 875-125Mg [Augmentin 875-125] 1 each PO Q12HR 7 Days #14 tab Ibuprofen [Motrin] 600 mg PO TID PRN #20 tab PRN Reason: Pain Discharge Medication List Amoxic-Pot Clav 875-125Mg [Augmentin 875-125] 1 each PO Q12HR 7 Days #14 tab 11/27 [Rx] Ibuprofen [Motrin] 600 mg PO TID PRN #20 tab 08/18/17 [Rx] Patient Instructions/Handouts: Hepatitis C (GEN), Sepsis (GEN), Leukocytosis ( DC), Methamphetamine Abuse (DC) Activity/Diet/Wound Care/Special Instructions: Per Dr Hidalgo who is covering for Debbi Strauss for Discharge and continue Augmentin for 7 days. Discharge Disposition: HOME SELF-CARE
[2017-08-18 16:31] VITALS: BP 126/68; PULSE 98; TEMP 98.8
== END 2017-08-18 16:36 | disposition home or self-care (01) | DRG 918 ==
LOC: EC 12:36 → 6SEL 16:00
PROVIDERS: ADMIT Internal Medicine; ATTEND Internal Medicine
DX: T43.621A Poisoning by amphetamines, accidental (unintentional), initial encounter (principal); B19.20 Unspecified viral hepatitis C without hepatic coma; F17.200 Nicotine dependence, unspecified, uncomplicated; F90.9 Attention-deficit hyperactivity disorder, unspecified type; K08.89 Other specified disorders of teeth and supporting structures; R74.8 Abnormal levels of other serum enzymes; D72.829 Elevated white blood cell count, unspecified
CPT/HCPCS: 36415; 70450; 71046; 80048; 80053; 80074; 80202; 80306; 81001; 83520; 83605; 84484; 85025; 85610; 85730; 87040; 93005; 96365; 96366; 96375; 99285

== ENCOUNTER 2017-08-21 00:14 | Emergency (ER) | payer OTHER ==
[2017-08-21 00:29] VITALS: RESP 18
--- NOTE | 2017-08-21 02:57 | ED ---
Skin/Abscess/FB HPI - General Chief complaint: Skin/Abscess/Foreign Body Stated complaint: Skin irriation/rash/scabs Time Seen by Provider: 08/21/17 01:40 Source: patient Mode of arrival: ambulatory Limitations: no limitations - History of Present Illness Initial comments: Patient is 27-year-old man who presents to be evaluated for multiple areas of excoriation to his trunk and both arms and both legs. He has noted them over the past few days. He is uncertain if he has had some sort of parasitic infection. No fever or chills or any other systemic symptom. MD complaint: rash -: days(s) Tetanus Up to Date: yes Location: generalized Severity: mild Quality: other (Itching) Consistency: constant Improves with: none Worsens with: none Associated symptoms: denies other symptoms - Related Data Previous Rx's Medication Instructions Recorded Nicotine 14Mg/24Hr Patch [Habitrol] 1 patch TRANSDERM DAILY #7 patch 09/20/17 Allergies Allergy/AdvReac Type Severity Reaction Status Date / Time ketamine AdvReac Hallucinati Verified 09/16/17 00:59 ons Review of Systems ROS Statement: Those systems with pertinent positive or pertinent negative responses have been documented in the HPI. ROS Other: All systems not noted in ROS Statement are negative. Constitutional: Denies: fever, chills Eyes: Denies: eye discharge ENT: Denies: congestion Respiratory: Denies: cough Genitourinary: Denies: dysuria Skin: Reports: as per HPI, lesions, pruritus. Denies: rash, change in color, change in hair/nails Past Medical History Additional Past Medical History / Comment(s): LOWER BACK PROBLEMS History of Any Multi-Drug Resistant Organisms: None Reported Past Surgical History: No Surgical Hx Reported Past Psychological History: ADD/ADHD Smoking Status: Current every day smoker Past Alcohol Use History: Daily Past Drug Use History: Methamphetamine - Past Family History Mother Family Medical History: No Reported History General Exam Limitations: no limitations General appearance: alert, in no apparent distress Eye exam: Present: normal appearance. Absent: scleral icterus, conjunctival injection ENT exam: Present: normal oropharynx, mucous membranes moist Skin exam: Present: warm, dry, intact, normal color, other (Patient has multiple excoriations to the trunk as well as bilateral upper and lower extremities.) Course Vital Signs 08/21/17 08/21/17 00:25 03:07 Temperature 97.8 F 98 F Pulse Rate 97 85 Respiratory 18 18 Rate Blood Pressure 132/92 128/63 O2 Sat by Pulse 98 98 Oximetry Medical Decision Making - Medical Decision Making Patient with multiple excoriations and did admit to amphetamine/methamphetamine use. Discussed that this substance use often leads to self excoriation. Discussed appropriate wound care and follow-up. Disposition Clinical Impression: Multiple excoriations Disposition: HOME SELF-CARE Condition: Good Instructions: Acute Wound Care (ED), Abrasion (ED) Is patient prescribed a controlled substance at d/c from ED?: No Referrals: None,Stated [Primary Care Provider] - 1-2 days Barrett Sloan MD [REFERRING] - 1-2 days
[2017-08-21 03:09] VITALS: BP 128/63; PULSE 85; TEMP 98
== END 2017-08-21 03:09 | disposition home or self-care (01) ==
LOC: EC 00:14
DX: F42.4 Excoriation (skin-picking) disorder (principal); F17.200 Nicotine dependence, unspecified, uncomplicated; Z88.4 Allergy status to anesthetic agent
CPT/HCPCS: 99282

== ENCOUNTER 2017-08-22 20:46 | Inpatient (IN) | payer MEDICAID, OTHER ==
--- NOTE | 2017-08-22 21:13 | ED ---
General Adult HPI - General Chief complaint: Psychiatric Symptoms Stated complaint: petition Time Seen by Provider: 08/22/17 20:56 Source: patient, police, RN notes reviewed, old records reviewed Mode of arrival: ambulatory Limitations: no limitations - History of Present Illness Initial comments: This is a 27-year-old male the ER for evaluation of psychiatric evaluations suicidal thoughts. Denies history of psychiatric illness takes no medications denies drugs or alcohol. Patient states he feels like he needs to mental health evaluation.. Patient's brought in under court order petition - Related Data Home Medications Medication Instructions Recorded Confirmed Amoxic-Pot Clav 875-125Mg 1 tab PO Q12HR 08/22/17 08/22/17 [Augmentin 875-125] Previous Rx's Medication Instructions Recorded Ibuprofen [Motrin] 600 mg PO TID PRN #20 tab 08/18/17 Allergies Allergy/AdvReac Type Severity Reaction Status Date / Time ketamine AdvReac Hallucinati Verified 08/22/17 21:12 ons Review of Systems ROS Statement: Those systems with pertinent positive or pertinent negative responses have been documented in the HPI. ROS Other: All systems not noted in ROS Statement are negative. Past Medical History Additional Past Medical History / Comment(s): LOWER BACK PROBLEMS History of Any Multi-Drug Resistant Organisms: None Reported Past Surgical History: No Surgical Hx Reported Past Psychological History: ADD/ADHD Smoking Status: Current every day smoker Past Alcohol Use History: Daily Past Drug Use History: Methamphetamine - Past Family History Mother Family Medical History: No Reported History General Exam Limitations: no limitations General appearance: alert, in no apparent distress Head exam: Present: atraumatic, normocephalic, normal inspection Eye exam: Present: normal appearance, PERRL, EOMI. Absent: scleral icterus, conjunctival injection, periorbital swelling ENT exam: Present: normal exam, mucous membranes moist Neck exam: Present: normal inspection. Absent: tenderness, meningismus, lymphadenopathy Respiratory exam: Present: normal lung sounds bilaterally. Absent: respiratory distress, wheezes, rales, rhonchi, stridor Cardiovascular Exam: Present: regular rate, normal rhythm, normal heart sounds. Absent: systolic murmur, diastolic murmur, rubs, gallop, clicks GI/Abdominal exam: Present: soft, normal bowel sounds. Absent: distended, tenderness, guarding, rebound, rigid Extremities exam: Present: normal inspection, full ROM, normal capillary refill. Absent: tenderness, pedal edema, joint swelling, calf tenderness Back exam: Present: normal inspection Neurological exam: Present: alert, oriented X3, CN II-XII intact Psychiatric exam: Present: normal affect, normal mood Skin exam: Present: warm, dry, intact, normal color. Absent: rash Course Vital Signs 08/22/17 21:01 Temperature 98.5 F Pulse Rate 84 Respiratory 18 Rate Blood Pressure 133/84 O2 Sat by Pulse 97 Oximetry - Reevaluation(s) Reevaluation #1: 08/22/17 21:56 Patient is medically clear for psychiatric evaluation Disposition Referrals: None,Stated [Primary Care Provider] - 1-2 days
[2017-08-22] MEDS ORDERED: MAGNESIUM HYDROXIDE 2,400 MG/10 ML CUP PO PRN (23:31)
[2017-08-22] MEDS ORDERED: MAG HYDROX/AL HYDROX/SIMETH 30 ML CUP PO PRN (23:31)
[2017-08-22] MEDS ORDERED: ZIPRASIDONE 20 MG VIAL IM PRN (23:31)
[2017-08-23] MEDS: NICOTINE 14MG/24HR PATCH TRANSDERM SCH (08:52)
--- NOTE | 2017-08-23 09:43 | P.HP ---
Psychiatric H&P - . H&P Date: 08/23/17 History & Physical: Allergies Allergy/AdvReac Type Severity Reaction Status Date / Time ketamine AdvReac Hallucinati Verified 08/22/17 21:12 ons Vital Signs Temp 97.9 F 08/23/17 06:40 Pulse 62 08/23/17 06:40 Resp 16 08/23/17 06:40 BP 117/70 08/23/17 06:40 Pulse Ox 98 08/22/17 23:25 Intake & Output 08/22/17 08/23/17 08/23/17 18:59 06:59 18:59 Weight 88.314 kg 08/23/17 09:28 Identification: Teo Strange is a 27 years old single white male living in [facility]. He was admitted to [facility] on [address] ordered for mental health evaluation. History of present illness: When he was asked for the reasons for coming to hospital he said he had an argument with his grandmother and she wanted him to come to the hospital. He does not want to give any further details about the argument. But he insists it was on the verbal and not physical. He denies mood changes, anger management issues, sleep issues, perceptual disturbances, thought disturbances etc. He insists that he does not have any issues with his anger management. But he is not able to explain why he had a verbal argument with his grandmother. Previous psychiatric history/drug and alcohol abuse: He was never in a psychiatric hospital and does not take any psychiatric medication. He is very vague about his drug and alcohol history. He said he drinks alcohol here and there in parties. But later on he said he may drink up to 12 beers a day. He takes about 30 tablets of [place]-10 per week he denies abusing other drugs however last week when he came to the ER his UDS was positive for amphetamines and methamphetamines. Previous medical history: He is ALLERGIC to ketamine. He said he tried it and devil up to multiple rashes all over his body. He still has scabs from the Rashes. His lab report done last week shows he is positive for hep C and had elevated AST ALT and bilirubin levels. Social history: He said he has graduated from high school. He was fighting, cutting classes etc. when the principal's office multiple times and was suspended several times. He was also kicked out once for smoking weed. He went to regular school. He did not repeat any grades or classes. He played some football and basketball. He had lots of friends. He said he stayed home when he was cutting classes. He said he was raised well by his parents and was not abused by anyone. He was not in the service. He is Confucianism by caodaism and goes to druze at times. He is heterosexual and does not have a girlfriend at this time. 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 He has Medicaid. He was arrested and was in [facility] for 1 year for breaking and entering possession of drugs etc. He denies any pending legal issues now. He lives with his grandmother. Family history: He denies any history of psychiatric or general medical problems in the family. Mental status examination: This is a white ambulatory male with strong for total. He has multiple scabs/rashes on his body. He said it is the ALLERGY reaction from ketamine. He did not make eye contact most of the time and was looking at the table or the window when he was talking to me. He appeared to show rather bizarre gestures. He also appeared to be preoccupied with internal stimuli. When asked about it he said he was thinking about his job situation. His speech is spontaneous soft and short. His mood is dull to irritable. Affect is somewhat constricted in range. He denies hallucinations, delusional thinking, suicide and homicide thoughts. He is able to name this place and several D&Cs middle of August 2017. He is not able to recall even one out of 3 items after 5 minutes. He is able to name the last 4 presidents correctly. He is able to spell house correctly. He spelled it backwards as ESOH. He said 8+ 7 is 15 and 87 is 48. His insight is poor and judgment is impaired as evidenced by continued substance abuse, alcohol abuse getting into argument with his grandmother etc. Diagnostic impression: Rule out grief psychotic disorder F 23. 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 Alcohol use disorder moderate to severe F 10.20. Antisocial personality disorder F 60.2. ALLERGY to ketamine. Elevated liver enzymes. Positive for hepatitis C. Treatment plan: Patient will have physical examination and psychosocial evaluation. He will receive milieu therapy group therapy individual therapy occupational therapy recreational therapy and medication education. I will wait to start him on any psychiatric medication until a diagnosis can be made which can be treated with psychiatric medication. Discharge with outpatient follow-up. Treatment goals: He will be able to provide good history. He will continue to be free of internal stimuli. He will continue to be free of violent behavior. Anticipated length of stay: 2-3 days.
[2017-08-23 11:56] LABS: Basophils # (A) 0.1 k/uL (0-0.2); Basophils % (A) 1 %; Eosinophils # (A) 0.2 k/uL (0-0.7); Eosinophils % (A) 1 %; HCT 53.2 % (39.0-53.0); HGB 18.4 gm/dL (13.0-17.5); Lymphocytes # (A) 1.9 k/uL (1.0-4.8); Lymphocytes % (A) 16 %; MCH 31.6 pg (25.0-35.0); MCHC 34.5 g/dL (31.0-37.0); MCV 91.6 fL (80.0-100.0); Mean Platelet Volume 7.2; Monocytes # (A) 0.8 k/uL (0-1.0); Monocytes % (A) 6 %; Neutrophils # (A) 9.4 k/uL (1.3-7.7); Neutrophils % (A) 75 %; Platelet Count 240 k/uL (150-450); RDW 14.6 % (11.5-15.5); WBC 12.5 k/uL (3.8-10.6)
[2017-08-23 12:15] LABS: ALT 89 U/L (21-72); AST 63 U/L (17-59); Albumin 5.3 g/dL (3.5-5.0); Alkaline Phosphatase 55 U/L (38-126); Anion Gap 16 mmol/L; Blood Urea Nitrogen 22 mg/dL (9-20); Calcium 10.6 mg/dL (8.4-10.2); Carbon Dioxide 27 mmol/L (22-30); Chloride 99 mmol/L (98-107); Glucose 98 mg/dL (74-99); Sodium 142 mmol/L (137-145); Total Protein 9.4 g/dL (6.3-8.2)
--- NOTE | 2017-08-23 12:40 | P.MDCNMH ---
History of Present Illness H&P Date: 08/23/17 Chief Complaint: Petitioned 27-year-old male who was petitioned by his grandmother after he had an argument with her. He is a known methamphetamine use. He was just discharged from the hospital after he had a chest pain episode induced by methamphetamine use. He also had some fevers that was explained by a tooth abscess. Laboratory testing during previous admission showed positive hepatitis C with elevated LFTs. He has no history of psychiatric disorders. At this time patient was a poor historian and was unable to specify why he was here. No chest pain, shortness of breath, fevers, chills, recent illness, nausea or vomiting. Review of Systems 12 point review of system performed, negative except HPI Past Medical History Additional Past Medical History / Comment(s): LOWER BACK PROBLEMS History of Any Multi-Drug Resistant Organisms: None Reported Past Surgical History: No Surgical Hx Reported Past Psychological History: ADD/ADHD Smoking Status: Current every day smoker Past Alcohol Use History: Daily Past Drug Use History: Methamphetamine - Past Family History Mother Family Medical History: No Reported History Medications and Allergies Home Medications Medication Instructions Recorded Confirmed Type Ibuprofen [Motrin] 600 mg PO TID PRN #20 tab 08/18/17 08/22/17 Rx Amoxic-Pot Clav 875-125Mg 1 tab PO Q12HR 08/22/17 08/22/17 History [Augmentin 875-125] Allergies Allergy/AdvReac Type Severity Reaction Status Date / Time ketamine AdvReac Hallucinati Verified 08/22/17 21:12 ons Physical Exam Vitals: Vital Signs Temp Pulse Pulse Resp BP BP Pulse Ox 08/23/17 06:40 97.9 F 62 16 117/70 08/22/17 23:25 97.9 F 88 18 127/76 98 08/22/17 23:20 97.4 F L 72 16 139/91 97 08/22/17 21:01 98.5 F 84 18 133/84 97 Intake and Output 08/22/17 08/23/17 08/23/17 22:59 06:59 14:59 Other: Weight 95.254 kg 88.314 kg Constitutional: No acute distress, conversant, pleasant Eyes:Anicteric sclerae, moist conjunctiva, no lid-lag, PERRLA, ENMT: Oropharynx clear, no erythema, exudates Neck: Supple, FROM, no masses, or JVD, No carotid bruits, No thyromegaly Lungs: Clear to auscultation, Clear to percussion, Normal respiratory effort, no accessory muscle use Cardiovascular: Heart regular in rate and rhythm, No murmurs, gallops, or rubs, No peripheral edema Abdominal: Soft, Nontender, no guarding, rebound or rigidity, Normoactive bowel sounds, No hepatomegaly, No splenomegaly, No palpable mass Skin: Normal temperature, tone, texture, turgor, no induration, No subcutaneous nodules, No rash, lesions, No ulcers Extremities: No digital cyanosis, No clubbing, Pedal pulses intact and symmetrical, Radial pulses intact and symmetrical, No calf tenderness Neuro: Muscles Strength 5/5 in all 4 extremities, Sensation to light touch grossly present throughout, Cranial nerves II-XII grossly intact, no focal sensory deficits Cranial Nerve Examination - Cranial Nerves Cranial Nerve II- Optic: Intact Cranial Nerve III- Oculomotor: Intact Cranial Nerve IV- Trochlear: Intact Cranial Nerve V- Trigeminal: Intact Cranial Nerve - Abducens: Intact Cranial Nerve VII- Facial: Intact Cranial Nerve VIII- Auditory: Intact Cranial Nerve IX- Glossopharyngeal: Intact Cranial Nerve X- Vagus: Intact Cranial Nerve XI- Accessory: Intact Cranial Nerve XII- Hypoglossal: Intact Results CBC & Chem 7: 08/23/17 11:40 Labs: Abnormal Lab Results - Last 24 Hours (Table) 08/23/17 Range/Units 11:40 WBC 12.5 H (3.8-10.6) k/uL Hgb 18.4 H D (13.0-17.5) gm/dL Hct 53.2 H (39.0-53.0) % Neutrophils # 9.4 H (1.3-7.7) k/uL Assessment and Plan Plan: Psychiatry evaluation/substance abuse disorder Management per psychiatry Advised to quit Tooth abscess with fever recently Resolved Health maintenance CBC, CMP recently checked, no need to repeat
[2017-08-23] MEDS: ACETAMINOPHEN TAB 325 MG TAB PO PRN ×2 (17:10→21:58)
[2017-08-23 17:15] LABS: Appearance,Urine Clear (Clear); Bilirubin,Urine Negative (Negative); Blood,Urine Negative (Negative); Color,Urine Yellow; Glucose,Urine (UA) Negative (Negative); Hyaline Casts,Urine 1 /lpf (0-2); Ketones,Urine Trace (Negative); Leukocyte Esterase,Urine Negative (Negative); Mucus,Urine Occasional /hpf; Nitrite,Urine Negative (Negative); Protein,Urine 1+ (Negative); RBC,Urine <1 /hpf (0-5); Specific Gravity,Urine 1.015 (1.001-1.035); Urobilinogen,Urine <2.0 mg/dL (<2.0); WBC,Urine 8 /hpf (0-5)
[2017-08-23 17:23] LABS: Amphetamine Screen,Urine Detected (NotDetected); Barbiturate Screen,Urine Not Detected (NotDetected); Benzodiazepines Screen,Urine Not Detected (NotDetected); Cocaine Screen,Urine Not Detected (NotDetected); Methadone Screen, Urine Not Detected (NotDetected); Opiate Screen,Urine Not Detected (NotDetected); Oxycodone Screen, Urine Not Detected (NotDetected); Phencyclidine Screen,Urine Not Detected (NotDetected); Tricyclic Antidepressant,Urine Not Detected (NotDetected); Urn Cannabinoid Scrn Not Detected (NotDetected)
[2017-08-24] MEDS: ACETAMINOPHEN TAB 325 MG TAB PO PRN (02:34)
[2017-08-24] MEDS ORDERED: LORazepam 2 MG/ML INJ IM PRN (04:07)
[2017-08-24] MEDS ORDERED: LORazepam 1 MG TAB PO PRN (04:07)
[2017-08-24] MEDS: NICOTINE 14MG/24HR PATCH TRANSDERM SCH (09:43)
--- NOTE | 2017-08-24 13:42 | P.PN ---
Progress Note - Text Progress Note Date: 08/24/17 I tried to see this patient prior to 11:00. He was sound asleep. I saw him again around 12:30 when he was awake but he was still sleepy, had slurred speech and could not provide good information. I told him that I will see him after lunch. But, he is sleeping again and could not be awakened. He had then injection of Geodon 20 mg IM at 4:12 this morning and has been too sleepy. He had told me earlier that he did not sleep well last night. It appears that his probable psychosis is secondary to methamphetamine abuse which made him not able to sleep well at night and he is too sleepy on Geodon injection. Since a good evaluation could not be done we will continue with his care as planned.
[2017-08-25] MEDS: NICOTINE 14MG/24HR PATCH TRANSDERM SCH (09:33)
--- NOTE | 2017-08-25 11:50 | P.PN ---
Progress Note - Text Interval history: The patient is found in the hallway he follows me to an interview room. He states he was admitted due to feelings of aggressiveness and anger. He does have a methamphetamine use disorder history. He states he' s been using regularly. He finds himself feeling tired and has been sleeping during the day. He has not been attending groups very often. Mental status exam: The patient is an alert male appearing his stated age. He has a disheveled appearance. He is dressed in his own clothing his T- shirt is visibly dirty. He reports his mood is "alright". He speaks with a southern accent. Speech is fluent and spontaneous. He denies having any suicidal or homicidal ideation intent or plan. He is reporting no auditory or visual hallucinations or specific delusions. He demonstrates no abnormal involuntary movements. He demonstrates no tangential thinking loose associations or flight of ideas. Plan: The patient has not been started on any psychotropic medication at this time. It seems the plan was to see if he would clear with more time clean from methamphetamine. He describes having some difficulty sleeping at night we will prescribe trazodone 50 mg at bedtime as needed. He is encouraged to participate in the milieu. We will monitor him for safety.
[2017-08-25] MEDS: ACETAMINOPHEN TAB 325 MG TAB PO PRN (14:12)
[2017-08-25] MEDS: traZODone HCL 50 MG TAB PO PRN (21:12)
[2017-08-26] MEDS: NICOTINE 14MG/24HR PATCH TRANSDERM SCH ×2 (09:28→16:35)
--- NOTE | 2017-08-26 13:10 | P.PN ---
Progress Note - Text Interval history: The patient is found in his room he follows me to an interview room. He indicates his mood is good. He states he had a good conversation with his aunt. He continues to assert that he does not feel as though he would harm himself. He is endorsing no symptoms of psychosis. He feels that he is getting sleep since he has been here appetite is stable. He does not feel that he requires a psychotropic medication. Mental status exam: The patient is a disheveled male appearing his stated age. He speaks with a southern accent. Speech is fluent and spontaneous nonpressured. He is wearing same clothing is yesterday T-shirt and jeans his T-shirt is visibly dirty. Hygiene appears to be adequate otherwise. He is reporting no suicidal or homicidal ideation intent or plan. He reports no auditory or visual hallucinations or any specific delusions. There is no observed evidence of psychosis. He demonstrates no tangential thinking loose associations or flight of ideas. He does not appear hypomanic or manic. He is able to remain seated calmly in his chair for the duration of the session. Insight and judgment grossly intact. He is oriented to person place and date. Plan: The patient will be encouraged to participate in the milieu. We will monitor him for safety. Vital signs reviewed. He appears to be clinically stabilizing.
[2017-08-26] MEDS: traZODone HCL 50 MG TAB PO PRN (21:02)
[2017-08-27] MEDS: NICOTINE 14MG/24HR PATCH TRANSDERM SCH (09:25)
--- NOTE | 2017-08-27 11:30 | P.DS ---
Providers Date of admission: 08/22/17 23:20 Attending physician: Hiren Cooley MD Consults: 08/22/17 23:31 Consult Physician Routine Consulting Provider: Mina Allan Consult Reason/Comments: follow up H & P Do you want consulting provider notified?: Yes Primary care physician: Stated None - Discharge Diagnosis(es) (1) Amphetamine-induced psychotic disorder Current Visit: Yes Status: Resolved Priority: High (2) Methamphetamine use disorder, severe, dependence Current Visit: Yes Status: Chronic Priority: High (3) Alcohol use disorder, severe, dependence Current Visit: Yes Status: Chronic Priority: High (4) Hepatitis C Current Visit: Yes Status: Chronic Priority: Medium Hospital Course: The patient is a 27-year-old single male admitted to the psychiatric unit voluntarily on 08/22/2017 with history of methamphetamine and alcohol use disorders. According to a petition filed by his aunt he was "delusional". His UDS in the ED was positive for amphetamines and methamphetamines. During this admission assessment she displayed bizarre gestures and appeared to be responding to internal stimuli. We admitted him to the psychiatric unit under the care of Dr. Owens. We provided a comprehensive biopsychosocial assessment. The interventional sale consultant die designer completed initial physical exam and medical history. The interventional sale consultant noted a history of hepatitis C. The admission total bilirubin, AST and ALT were 3.0, 6389 respectively. He did not leave his room during the first 2 days of admission. He had no behavioral problems that required emergent medication for the treatment of behavioral dyscontrol. When he began attending therapeutic groups and activities staff noted that his thinking gradually became more organized and focused. He requested discharge in order to return to work. He recognized that his presentation was related to his use of methamphetamine but declined referral to a substance abuse treatment program. At time of admission she presented as casually dressed and casually groomed 27- year-old female who was pleasant on approach. He made eye contact and attended the interview. He had tattoos on his left forearm but no prominent physical abnormalities. He had a blunted but bright facial expression. He was alert and oriented to person, place and time. He showed no abnormality of psychomotor activity. His speech was spontaneous with normal rate, rhythm and volume. His affect was bright and appropriate. He denied suicidal ideation, wishes or homicidal ideation. He denied such depressive cognitions as hopelessness, helplessness or worthlessness. He did not express ideas reference , paranoid ideation or delusional thoughts. His thinking was abstract and associations were coherent and logical. He denied hallucinations and did not appear to be responding to internal stimuli. Patient Condition at Discharge: Stable Plan - Discharge Summary Discharge Rx Participant: No New Discharge Prescriptions: New Nicotine 14Mg/24Hr Patch [Habitrol] 1 patch TRANSDERM DAILY #7 patch traZODone HCL [Desyrel] 50 mg PO HS PRN #30 tab PRN Reason: Insomnia Continue Ibuprofen [Motrin] 600 mg PO TID PRN #20 tab PRN Reason: Pain Discontinued Amoxic-Pot Clav 875-125Mg [Augmentin 875-125] 1 tab PO Q12HR Discharge Medication List Ibuprofen [Motrin] 600 mg PO TID PRN #20 tab 08/18/17 [Rx] Nicotine 14Mg/24Hr Patch [Habitrol] 1 patch TRANSDERM DAILY #7 patch 08/27/17 [ Rx] traZODone HCL [Desyrel] 50 mg PO HS PRN #30 tab 08/27/17 [Rx] Follow up Appointment(s)/Referral(s): None,Stated [Primary Care Provider] - 1-2 days Discharge Disposition: HOME SELF-CARE
--- NOTE | 2017-08-27 14:40 | P.PN ---
Progress Note - Text Progress Note Date: 08/27/17 I planned on discharging the patient today. However, the social professionals spoke with his family. There concerned that if he were discharged he would resume use of methamphetamine. They have submitted a petition with probate court for substance abuse treatment. He has a probate hearing scheduled for 08/31/2017. The court requested that we keep the patient in the hospital until the conservative him with a subpoena. I canceled discharge and we are waiting the court to notify the patient of the pending probate hearing.
[2017-08-27] MEDS: traZODone HCL 50 MG TAB PO PRN (21:00)
[2017-08-28 06:16] VITALS: BP 134/83; PULSE 73; RESP 18; TEMP 97.6
[2017-08-28] MEDS: NICOTINE 14MG/24HR PATCH TRANSDERM SCH (08:15)
== END 2017-08-28 11:25 | disposition home or self-care (01) | DRG 897 ==
LOC: EC 20:46 → 3MHU 23:20
PROVIDERS: ADMIT Psychiatry & Neurology Psychiatry; ATTEND Psychiatry & Neurology Psychiatry
DX: F15.259 Other stimulant dependence with stimulant-induced psychotic disorder, unspecified (principal); R45.851 Suicidal ideations; B19.20 Unspecified viral hepatitis C without hepatic coma; F10.20 Alcohol dependence, uncomplicated; F17.200 Nicotine dependence, unspecified, uncomplicated; F60.2 Antisocial personality disorder; Z88.8 Allergy status to other drugs, medicaments and biological substances
CPT/HCPCS: 80053; 80306; 81001; 82075; 84443; 85025; 99285

== ENCOUNTER 2017-08-31 00:06 | Emergency (ER) | payer OTHER ==
[2017-08-31 00:21] VITALS: RESP 16
[2017-08-31] MEDS ORDERED: LORazepam 2 MG/ML INJ IV STA (01:28)
[2017-08-31 01:46] LABS: Basophils # (A) 0.1 k/uL (0-0.2); Basophils % (A) 0 %; Eosinophils # (A) 0.2 k/uL (0-0.7); Eosinophils % (A) 1 %; HCT 47.7 % (39.0-53.0); HGB 16.6 gm/dL (13.0-17.5); Lymphocytes # (A) 2.1 k/uL (1.0-4.8); Lymphocytes % (A) 14 %; MCH 30.7 pg (25.0-35.0); MCHC 34.8 g/dL (31.0-37.0); MCV 88.1 fL (80.0-100.0); Mean Platelet Volume 7.5; Monocytes # (A) 1.1 k/uL (0-1.0); Monocytes % (A) 8 %; Neutrophils # (A) 10.7 k/uL (1.3-7.7); Neutrophils % (A) 75 %; Platelet Count 272 k/uL (150-450); RBC 5.41 m/uL (4.30-5.90); RDW 13.5 % (11.5-15.5); WBC 14.2 k/uL (3.8-10.6)
[2017-08-31 01:50] LABS: Appearance,Urine Clear (Clear); Bilirubin,Urine Negative (Negative); Blood,Urine Negative (Negative); Color,Urine Yellow; Glucose,Urine (UA) Negative (Negative); Hyaline Casts,Urine 217 /lpf (0-2); Ketones,Urine 2+ (Negative); Leukocyte Esterase,Urine Negative (Negative); Mucus,Urine Moderate /hpf; Nitrite,Urine Negative (Negative); PH, Urine 6.5 (5.0-8.0); Protein,Urine 2+ (Negative); RBC,Urine 1 /hpf (0-5); Specific Gravity,Urine 1.019 (1.001-1.035); WBC,Urine 1 /hpf (0-5)
[2017-08-31 01:54] LABS: Urn Cannabinoid Scrn Detected (NotDetected)
[2017-08-31 01:55] LABS: Amphetamine Screen,Urine Detected (NotDetected); Barbiturate Screen,Urine Not Detected (NotDetected); Benzodiazepines Screen,Urine Not Detected (NotDetected); Cocaine Screen,Urine Detected (NotDetected); Methadone Screen, Urine Not Detected (NotDetected); Opiate Screen,Urine Not Detected (NotDetected); Oxycodone Screen, Urine Not Detected (NotDetected); Phencyclidine Screen,Urine Not Detected (NotDetected); Tricyclic Antidepressant,Urine Not Detected (NotDetected)
[2017-08-31 01:56] LABS: ALT 197 U/L (21-72); AST 100 U/L (17-59); Alkaline Phosphatase 63 U/L (38-126); Anion Gap 16 mmol/L; Blood Urea Nitrogen 20 mg/dL (9-20); Calcium 10.5 mg/dL (8.4-10.2); Carbon Dioxide 25 mmol/L (22-30); Chloride 100 mmol/L (98-107); Glucose 97 mg/dL (74-99); Potassium 4.5 mmol/L (3.5-5.1); Sodium 141 mmol/L (137-145); Total Bilirubin 5.2 mg/dL (0.2-1.3); Total Protein 8.9 g/dL (6.3-8.2)
--- NOTE | 2017-08-31 03:15 | ED ---
Psych HPI - General Chief Complaint: Psychiatric Symptoms Stated Complaint: mental health Time Seen by Provider: 08/31/17 00:07 Source: patient, police, EMS Mode of arrival: EMS - History of Present Illness Initial Comments: 27-year-old male patient presents to the emergency department today brought in by grandmother for abnormal behavior. She states that he is behaving irrationally. States that he did verbalize that he wanted to kill himself. Patient is a known methamphetamine user. Patient exhibits flight of ideas during initial history taking and is not a very good historian. He does admit to using drugs today. He denies any injuries. States he is feeling well physically. Patient denies any recent rash, fever, chills, shortness breath, chest pain, abdominal pain, nausea, vomiting, diarrhea, constipation, back pain , numbness, tingling, dizziness, weakness, hematuria, dysuria, urinary urgency, urinary frequency, headache, visual changes, or any other complaints. - Related Data Previous Rx's Medication Instructions Recorded Ibuprofen [Motrin] 600 mg PO TID PRN #20 tab 08/18/17 Nicotine 14Mg/24Hr Patch [Habitrol] 1 patch TRANSDERM DAILY #7 patch 08/27/17 traZODone HCL [Desyrel] 50 mg PO HS PRN #30 tab 08/27/17 Allergies Allergy/AdvReac Type Severity Reaction Status Date / Time ketamine AdvReac Hallucinati Verified 08/25/17 21:49 ons Review of Systems ROS Statement: Those systems with pertinent positive or pertinent negative responses have been documented in the HPI. ROS Other: All systems not noted in ROS Statement are negative. Past Medical History Additional Past Medical History / Comment(s): LOWER BACK PROBLEMS-Chronic back pain. History of Any Multi-Drug Resistant Organisms: None Reported Past Surgical History: No Surgical Hx Reported Past Anesthesia/Blood Transfusion Reactions: No Reported Reaction Past Psychological History: ADD/ADHD Smoking Status: Current some day smoker Past Alcohol Use History: Occasional Past Drug Use History: Methamphetamine - Past Family History Mother Family Medical History: No Reported History Additional Family Medical History / Comment(s): Mother is alive at 45 years old. Father Additional Family Medical History / Comment(s): Degenerative disc disease. Father is alive at the age of 5454 years old. General Exam Limitations: altered mental status General appearance: alert, in no apparent distress, appears intoxicated, other ( this is a well-developed, well-nourished adult male patient in no acute distress. Vital signs upon presentation are temperature 99.0F, pulse 99, respirations 16, blood pressure 173/75, pulse ox 97% on room air.) Head exam: Present: atraumatic, normocephalic, normal inspection Eye exam: Present: normal appearance, PERRL, EOMI. Absent: scleral icterus, conjunctival injection, periorbital swelling ENT exam: Present: normal exam, normal oropharynx, mucous membranes moist Respiratory exam: Present: normal lung sounds bilaterally. Absent: respiratory distress, wheezes, rales, rhonchi, stridor Cardiovascular Exam: Present: regular rate, normal rhythm, normal heart sounds. Absent: systolic murmur, diastolic murmur, rubs, gallop, clicks GI/Abdominal exam: Present: soft, normal bowel sounds. Absent: distended, tenderness, guarding, rebound, rigid Psychiatric exam: Present: agitated, other (flight of ideas, continuously talking) Skin exam: Present: warm, dry, intact, normal color. Absent: rash Course Vital Signs 08/31/17 00:13 Temperature 99.0 F Pulse Rate 99 Respiratory 16 Rate Blood Pressure 173/75 O2 Sat by Pulse 97 Oximetry Medical Decision Making - Medical Decision Making 27-year-old male patient presented to the emergency department today exhibiting flight of ideas and abnormal behavior. Grandmother did sign a petition as patient did verbalize he wanted to kill himself. He was seen and evaluated by emergency psychiatric services, labs are performed. EPS states that they believe has issues related to drugs and not a psychiatric issue so he will not be admitted to the mental health unit. upon reevaluation patient is resting comfortably in bed. He is alert and oriented 3 at this time. We did discuss results of his blood work including elevated liver enzymes and bilirubin. Patient states he is aware of this he is instructed to follow-up with his primary care physician for recheck in 1-2 days. Return parameters were discussed in detail. He verbalizes understanding and agrees with this plan. - Lab Data Result diagrams: 08/31/17 01:38 08/31/17 01:38 Lab Results 08/31/17 08/31/17 08/31/17 Range/Units 01:38 01:38 01:38 WBC 14.2 H (3.8-10.6) k/uL RBC 5.41 (4.30-5.90) m/uL Hgb 16.6 (13.0-17.5) gm/dL Hct 47.7 (39.0-53.0) % MCV 88.1 (80.0-100.0) fL MCH 30.7 (25.0-35.0) pg MCHC 34.8 (31.0-37.0) g/dL RDW 13.5 (11.5-15.5) % Plt Count 272 (150-450) k/uL Neutrophils % 75 % Lymphocytes % 14 % Monocytes % 8 % Eosinophils % 1 % Basophils % 0 % Neutrophils # 10.7 H (1.3-7.7) k/uL Lymphocytes # 2.1 (1.0-4.8) k/uL Monocytes # 1.1 H (0-1.0) k/uL Eosinophils # 0.2 (0-0.7) k/uL Basophils # 0.1 (0-0.2) k/uL Sodium 141 (137-145) mmol/L Potassium 4.5 (3.5-5.1) mmol/L Chloride 100 (98-107) mmol/L Carbon Dioxide 25 (22-30) mmol/L Anion Gap 16 mmol/L BUN 20 (9-20) mg/dL Creatinine 1.10 (0.66-1.25) mg/dL Est GFR (CKD-EPI)AfAm >90 (>60 ml/min/1.73 sqM) Est GFR (CKD-EPI)NonAf >90 (>60 ml/min/1.73 sqM) Glucose 97 (74-99) mg/dL Calcium 10.5 H (8.4-10.2) mg/dL Total Bilirubin 5.2 H (0.2-1.3) mg/dL AST 100 H (17-59) U/L ALT 197 H (21-72) U/L Alkaline Phosphatase 63 (38-126) U/L Total Protein 8.9 H (6.3-8.2) g/dL Albumin 5.0 (3.5-5.0) g/dL Urine Color Yellow Urine Appearance Clear (Clear) Urine pH 6.5 (5.0-8.0) Ur Specific [place] 1.019 (1.001-1.035) Urine Protein 2+ H (Negative) Urine Glucose (UA) Negative (Negative) Urine Ketones 2+ H (Negative) Urine Blood Negative (Negative) Urine Nitrite Negative (Negative) Urine Bilirubin Negative (Negative) Urine Urobilinogen 4.0 (<2.0) mg/dL Ur Leukocyte Esterase Negative (Negative) Urine RBC 1 (0-5) /hpf Urine WBC 1 (0-5) /hpf Hyaline Casts 217 H (0-2) /lpf Urine Mucus Moderate H (None) /hpf Urine Opiates Screen Not Detected (NotDetected) Ur Oxycodone Screen Not Detected (NotDetected) Urine Methadone Screen Not Detected (NotDetected) Ur Propoxyphene Screen Not Detected (NotDetected) Ur Barbiturates Screen Not Detected (NotDetected) U Tricyclic Antidepress Not Detected (NotDetected) Ur Phencyclidine Scrn Not Detected (NotDetected) Ur Amphetamines Screen Detected H (NotDetected) U Methamphetamines Scrn Detected H (NotDetected) U Benzodiazepines Scrn Not Detected (NotDetected) Urine Cocaine Screen Detected H (NotDetected) U Marijuana (THC) Screen Detected H (NotDetected) Disposition Clinical Impression: Polysubstance abuse Disposition: HOME SELF-CARE Condition: Good Instructions: Polysubstance Abuse (ED) Additional Instructions: Follow-up with your primary care physician regarding elevated liver enzymes and bilirubin. Avoid use of street drugs. Return here immediately for any new, worsening, or concerning symptoms. Is patient prescribed a controlled substance at d/c from ED?: No Referrals: None,Stated [Primary Care Provider] - 1-2 days Time of Disposition: 04:18
[2017-08-31 04:24] VITALS: BP 122/56; PULSE 72; TEMP 98.6
== END 2017-08-31 04:24 | disposition home or self-care (01) ==
LOC: EC 00:06
DX: F19.10 Other psychoactive substance abuse, uncomplicated (principal); F17.200 Nicotine dependence, unspecified, uncomplicated; Z88.4 Allergy status to anesthetic agent
CPT/HCPCS: 82075; 36415; 80053; 85025; 81001; 80306; 99285; 96374; J2060

== ENCOUNTER 2017-09-15 19:35 | Inpatient (IN) | payer MEDICAID, OTHER ==
[2017-09-15] MEDS ORDERED: LORazepam 2 MG/ML INJ IV STA (20:17)
[2017-09-15] MEDS ORDERED: HALOPERIDOL LACTATE 5 MG/ML 1 ML VIAL IM STA (20:17)
--- NOTE | 2017-09-15 20:40 | ED ---
General Adult HPI - General Chief complaint: Allergic Reaction Stated complaint: Allergic Reaction Time Seen by Provider: 09/15/17 19:49 Source: family, EMS Mode of arrival: EMS Limitations: no limitations - History of Present Illness Initial comments: Patient is a 27-year-old male presenting for psychiatric evaluation. Patient has an extensive history of methamphetamine abuse and originally came here because he was having ALLERGIC reaction. However, upon further evaluation, the family states that the patient has been very aggressive and been abusing drugs recently. He also has made multiple statements to family that he wishes to kill himself and he has been aggressive towards others. Patient has been extremely aggressive in the emergency department and will not provide complete review of systems. - Related Data Previous Rx's Medication Instructions Recorded Ibuprofen [Motrin] 600 mg PO TID PRN #20 tab 08/18/17 Nicotine 14Mg/24Hr Patch [Habitrol] 1 patch TRANSDERM DAILY #7 patch 08/27/17 traZODone HCL [Desyrel] 50 mg PO HS PRN #30 tab 08/27/17 Allergies Allergy/AdvReac Type Severity Reaction Status Date / Time ketamine AdvReac Hallucinati Verified 09/15/17 19:57 ons Review of Systems ROS Statement: Those systems with pertinent positive or pertinent negative responses have been documented in the HPI. Review of systems unable to be obtained secondary to patient's mental status ROS Other: All systems not noted in ROS Statement are negative. Past Medical History Additional Past Medical History / Comment(s): LOWER BACK PROBLEMS-Chronic back pain. History of Any Multi-Drug Resistant Organisms: None Reported Past Surgical History: No Surgical Hx Reported Past Anesthesia/Blood Transfusion Reactions: No Reported Reaction Past Psychological History: ADD/ADHD Smoking Status: Current some day smoker Past Alcohol Use History: Occasional Past Drug Use History: Methamphetamine - Past Family History Mother Family Medical History: No Reported History Additional Family Medical History / Comment(s): Mother is alive at 45 years old. Father Additional Family Medical History / Comment(s): Degenerative disc disease. Father is alive at the age of 5454 years old. General Exam - General Exam Comments Initial Comments: Constitutional: Pt is oriented to person, place, and time. Pt appears well- developed and well-nourished. Patient is in distress secondary to agitation. HENT: Head: Normocephalic and atraumatic. Eyes: EOM are normal. Neck: Normal range of motion. Neck supple. Cardiovascular: Tachycardia present, regular rhythm, S1 normal, S2 normal and normal heart sounds. Exam reveals no gallop and no friction rub. No murmur heard. Pulmonary/Chest: Effort normal and breath sounds normal. No tachypnea and no bradypnea. No respiratory distress. No wheezes or rales noted. Abdominal: Soft. Bowel sounds are normal. Pt exhibits no shifting dullness, no distension, no pulsatile liver, no fluid wave, no abdominal bruit and no ascites. There is no tenderness. There is no rigidity, no rebound, no guarding, no tenderness at McBurney's point and negative Parra's sign. Musculoskeletal: Normal range of motion. Neurological: Pt is alert and oriented to person, place, and time. No cranial nerve deficit. Skin: Patient is diaphoretic. No rash noted. Pt is not diaphoretic. No erythema. No pallor. Psychiatric: Patient is agitated and aggressive lashing out at staff and being belligerent. Limitations: no limitations Course Vital Signs 09/15/17 09/15/17 09/15/17 19:44 20:30 21:30 Temperature 98.4 F Pulse Rate 100 116 H 98 Respiratory 20 20 20 Rate Blood Pressure 143/74 158/88 154/79 O2 Sat by Pulse 97 95 95 Oximetry 09/15/17 22:30 Temperature Pulse Rate 82 Respiratory 20 Rate Blood Pressure 123/56 O2 Sat by Pulse 99 Oximetry Procedures - Restraint - Face to Face Restraint Occurrence 1 Patient's Immediate Situation: Endangers staff safety Patient's Reaction to the Intervention: Appropriate Patient's Medical & Behavioral Condition: Awake Need to Continue or Terminate Restraint or Seclusion: Continue Face to Face Eval of Restraint Date: 09/15/17 Face to Face Eval of Restraint Time: 20:40 Medical Decision Making - Medical Decision Making Because the patient was being extremely combative as well as bilateral, the patient had to be physically restrained as noted in the procedure note. Ativan and Haldol was ordered at the time of the restraints but patient calmed down after being restrained and this is not necessary. Patient has been petitioned by the family and is medically started. Patient is also been evaluated by psychiatric services and will be placed in their care. Patient is medically cleared. Disposition Clinical Impression: Suicidal ideation, Aggressive behavior, Drug abuse Disposition: TRANSFER TO PSYCH HOSP/UNIT Condition: Fair Is patient prescribed a controlled substance at d/c from ED?: No Referrals: None,Stated [Primary Care Provider] - 1-2 days Time of Disposition: 22:52 - Out of Hospital Transfer - Req. Specs Out of Hospital Transfer - Requested Specifics: Psychiatric Non-ICU ( Psychiatric facility to be determined)
[2017-09-15] MEDS ORDERED: MAGNESIUM HYDROXIDE 2,400 MG/10 ML CUP PO PRN (23:06)
[2017-09-15] MEDS ORDERED: MAG HYDROX/AL HYDROX/SIMETH 30 ML CUP PO PRN (23:06)
[2017-09-15] MEDS ORDERED: LORazepam 1 MG TAB PO PRN (23:06)
[2017-09-15] MEDS ORDERED: ZIPRASIDONE 20 MG VIAL IM PRN (23:06)
[2017-09-15] MEDS ORDERED: ACETAMINOPHEN TAB 325 MG TAB PO PRN (23:06)
[2017-09-15 23:07] LABS: Amphetamine Screen,Urine Detected (NotDetected); Barbiturate Screen,Urine Not Detected (NotDetected); Benzodiazepines Screen,Urine Not Detected (NotDetected); Cocaine Screen,Urine Not Detected (NotDetected); Methadone Screen, Urine Not Detected (NotDetected); Opiate Screen,Urine Not Detected (NotDetected); Oxycodone Screen, Urine Not Detected (NotDetected); Phencyclidine Screen,Urine Not Detected (NotDetected); Tricyclic Antidepressant,Urine Not Detected (NotDetected); Urn Cannabinoid Scrn Not Detected (NotDetected)
[2017-09-15] MEDS ORDERED: LORazepam 2 MG/ML INJ IM PRN (23:09)
[2017-09-15 23:19] LABS: Appearance,Urine Clear (Clear); Bilirubin,Urine Negative (Negative); Blood,Urine Negative (Negative); Color,Urine Yellow; Glucose,Urine (UA) Negative (Negative); Hyaline Casts,Urine 2 /lpf (0-2); Ketones,Urine 1+ (Negative); Leukocyte Esterase,Urine Negative (Negative); Mucus,Urine Many /hpf; Nitrite,Urine Negative (Negative); PH, Urine 5.5 (5.0-8.0); Protein,Urine 1+ (Negative); RBC,Urine 1 /hpf (0-5); Specific Gravity,Urine 1.021 (1.001-1.035); Squamous Epithelial Cell,Urine <1 /hpf (0-4); Urobilinogen,Urine <2.0 mg/dL (<2.0); WBC,Urine 1 /hpf (0-5)
[2017-09-16 00:16] VITALS: BMI 27.6
[2017-09-16 08:18] LABS: Basophils % (A) 1 %; Eosinophils # (A) 0.2 k/uL (0-0.7); Eosinophils % (A) 3 %; HCT 45.9 % (39.0-53.0); HGB 15.8 gm/dL (13.0-17.5); Lymphocytes % (A) 30 %; MCH 31.4 pg (25.0-35.0); MCHC 34.4 g/dL (31.0-37.0); MCV 91.2 fL (80.0-100.0); Mean Platelet Volume 6.9; Monocytes # (A) 0.6 k/uL (0-1.0); Monocytes % (A) 9 %; Neutrophils # (A) 3.7 k/uL (1.3-7.7); Neutrophils % (A) 56 %; Platelet Count 208 k/uL (150-450); RBC 5.03 m/uL (4.30-5.90); WBC 6.5 k/uL (3.8-10.6)
[2017-09-16 08:36] LABS: ALT 159 U/L (21-72); AST 92 U/L (17-59); Albumin 4.3 g/dL (3.5-5.0); Alkaline Phosphatase 54 U/L (38-126); Anion Gap 12 mmol/L; Blood Urea Nitrogen 17 mg/dL (9-20); Calcium 9.4 mg/dL (8.4-10.2); Carbon Dioxide 26 mmol/L (22-30); Chloride 103 mmol/L (98-107); Cholesterol 106 mg/dL (<200); Glucose 96 mg/dL (74-99); HDL Cholesterol 32 mg/dL (40-60); LDL Cholesterol,Calculated 59 mg/dL (0-99); Potassium 4.5 mmol/L (3.5-5.1); Sodium 141 mmol/L (137-145); Total Bilirubin 2.6 mg/dL (0.2-1.3); Total Protein 7.4 g/dL (6.3-8.2); Triglycerides 75 mg/dL (<150)
--- NOTE | 2017-09-16 10:59 | P.HPMEDMHU ---
History of Present Illness H&P Date: 09/16/17 The patient is a 27-year-old male is admitted to the mental health unit, apparently EMS was called by's and after the patient was making suicidal comments, and on arrival the patient was noted to be increasingly combative, aggressive, belligerent and was put into restraints for endangering staff. Apparently when he got here there was some reports that the patient might be having an ALLERGIC reaction. The patient was apparently petitioned by his sister and states that Teo make comments of getting a pistol kill himself and was making threatening comments the neighbor. Teo at present is currently denying any such claims, denies any history of drug use, yet has a positive UDS for methamphetamines. He reports that his family in particular sister blue everything out of proportion and that he was making these comments to blow his head off because he simply had a severe headache which is now resolved. The patient denies any chest pain shortness of breath, he denies any other medical concerns or complaints at this time Review of Systems All other 12 point review systems negative except for HPI Past Medical History Additional Past Medical History / Comment(s): LOWER BACK PROBLEMS-Chronic back pain. History of Any Multi-Drug Resistant Organisms: None Reported Past Surgical History: No Surgical Hx Reported Past Anesthesia/Blood Transfusion Reactions: No Reported Reaction Smoking Status: Current every day smoker - Past Family History Mother Family Medical History: No Reported History Additional Family Medical History / Comment(s): Mother is alive at 45 years old. Father Additional Family Medical History / Comment(s): Degenerative disc disease. Father is alive at the age of 5454 years old. Medications and Allergies Home Medications Medication Instructions Recorded Confirmed Type Ibuprofen [Motrin] 600 mg PO TID PRN #20 tab 08/18/17 09/16/17 Rx Nicotine 14Mg/24Hr Patch [Habitrol] 1 patch TRANSDERM DAILY #7 patch 08/27/17 Rx traZODone HCL [Desyrel] 50 mg PO HS PRN #30 tab 08/27/17 09/16/17 Rx Allergies Allergy/AdvReac Type Severity Reaction Status Date / Time ketamine AdvReac Hallucinati Verified 09/16/17 00:59 ons Physical Exam Vitals: Vital Signs Temp Pulse Pulse Resp BP BP Pulse Ox 09/16/17 00:00 97.9 F 103 H 18 111/77 09/15/17 22:30 82 20 123/56 99 09/15/17 21:30 98 20 154/79 95 09/15/17 20:30 116 H 20 158/88 95 09/15/17 19:44 98.4 F 100 20 143/74 97 Intake and Output 09/15/17 09/16/17 09/16/17 22:59 06:59 14:59 Other: Weight 90.718 kg 87.2 kg Constitutional: No acute distress, conversant, pleasant Eyes: Anicteric sclerae, moist conjunctiva, no lid-lag, PERRLA ENMT: NC/AT,Oropharynx clear, no erythema, exudates Neck:Supple, FROM, no masses, or JVD, No carotid bruits; No thyromegaly Lungs: Clear to auscultation, Clear to percussion, Normal respiratory effort, no accessory muscle use Cardiovascular: Heart regular in rate and rhythm, No murmurs, gallops, or rubs no peripheral edema Abdominal: Soft Nontender, nom distended, no guarding, no rebound or rigidity, Normoactive bowel sounds No hepatomegaly, No splenomegaly, No palpable mass No abdominal wall hernia noted Skin: Normal temperature, tone, texture, turgor, No induration No subcutaneous nodules, rash on the right side of his neck, patient denying itchiness reports that it's a shaving rash Extremities:No digital cyanosis No clubbing, Pedal pulses intact and symmetrical Radial pulses intact and symmetrical Normal gait and station, No calf tenderness Psychiatric: Flat affect, depressed mood, poor eye contact, appears disheveled, Neuro: Muscles Strength 5/5 in all 4 extremities, Sensation to light touch grossly present throughout, Cranial nerves II-XII grossly intact. No focal sensory deficits Cranial Nerve Examination - Cranial Nerves Cranial Nerve II- Optic: Intact Cranial Nerve III- Oculomotor: Intact Cranial Nerve IV- Trochlear: Intact Cranial Nerve V- Trigeminal: Intact Cranial Nerve - Abducens: Intact Cranial Nerve VII- Facial: Intact Cranial Nerve VIII- Auditory: Intact Cranial Nerve IX- Glossopharyngeal: Intact Cranial Nerve X- Vagus: Intact Cranial Nerve XI- Accessory: Intact Cranial Nerve XII- Hypoglossal: Intact Results CBC & Chem 7: 09/16/17 07:51 09/16/17 07:51 Labs: Abnormal Lab Results - Last 24 Hours (Table) 09/15/17 09/15/17 09/16/17 Range/Units 22:48 22:48 07:51 Total Bilirubin 2.6 H (0.2-1.3) mg/dL AST 92 H (17-59) U/L ALT 159 H (21-72) U/L HDL Cholesterol 32 L (40-60) mg/dL Urine Protein 1+ H (Negative) Urine Ketones 1+ H (Negative) Urine Mucus Many H (None) /hpf Ur Amphetamines Screen Detected H (NotDetected) U Methamphetamines Scrn Detected H (NotDetected) Thrombosis Risk Factor Assmnt - Choose All That Apply Other Risk Factors: No Assessment and Plan (1) Suicidal ideation Current Visit: Yes Status: Acute Code(s): R45.851 - SUICIDAL IDEATIONS SNOMED Code(s): 3923366 (2) Depression Current Visit: No Status: Acute Code(s): F32.9 - MAJOR DEPRESSIVE DISORDER, SINGLE EPISODE, UNSPECIFIED SNOMED Code(s): 48663082 (3) Methamphetamine abuse Current Visit: No Status: Acute Code(s): F15.10 - OTHER STIMULANT ABUSE, UNCOMPLICATED SNOMED Code(s): 267625863 (4) Aggressive behavior Current Visit: Yes Status: Acute Code(s): R46.89 - OTHER SYMPTOMS AND SIGNS INVOLVING APPEARANCE AND BEHAVIOR SNOMED Code(s): 12191511 Plan: The patient is admitted to the mental health unit, with suicidal ideation and aggressive behavior and possible homicidal ideation. We'll defer to the inpatient psychiatric team regarding ongoing treatment and therapy including psychotropic medications and cognitive behavioral therapy. The patient is currently medically stable, has no current complaints. He appears to be slightly dehydrated. Would recommend increasing oral fluid intake. She is otherwise medically stable, We'll continue to follow with you on a when necessary basis if needed. Please feel free to contact the sound inpatient team for any questions or concerns
[2017-09-16] MEDS: NICOTINE 14MG/24HR PATCH TRANSDERM SCH (13:00)
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
[2017-09-17] MEDS: NICOTINE 14MG/24HR PATCH TRANSDERM SCH (10:01)
--- NOTE | 2017-09-17 12:13 | P.PN ---
Progress Note - Text Interval history: The patient is found in his room he follows me to an interview room. The patient was admitted for presumed symptoms of psychosis and making threatening statements. The patient does have a history of methamphetamine use disorder. He has been isolating in his room for the most part today except for meals and medication. He does not feel that he needs any other medication other than Xanax at this time. Mental status exam: The patient is a male appearing his stated age. He has a disheveled appearance he is dressed in 2 hospital gowns. He speaks with a southern accent. He is calm and cooperative he maintains a bland affect. He states that he has $40,000 on a credit card and his family is trying to take that from him. He alleges that his perspective employer gave him $40,000 as start up money. He reports no thoughts of harming himself or others. He lacks insight into statements he made prior to this admission. He demonstrates no verbal or physical aggressiveness he demonstrates no abnormal involuntary movements. Plan: The patient does not wish to be prescribed any medication other than trazodone and a benzodiazepine. We will monitor him for safety. It appears during his last hospitalization he cleared from the methamphetamine and his symptoms resolved. He reports having court-ordered substance abuse treatment as an outpatient. Vital signs reviewed.
[2017-09-17 15:36] LABS: Hemoglobin A1C 5.4 % (4.0-6.0)
[2017-09-18] MEDS: NICOTINE 14MG/24HR PATCH TRANSDERM SCH (08:03)
--- NOTE | 2017-09-18 11:07 | P.PN ---
Progress Note - Text Interval history: The patient is found in his room he follows me to an interview room. Staff report that the patient has been isolating in his room other than meals. He states he's been here before he didn't find groups helpful and does not plan to attend them now. He does ask when he has been be discharged as he feels he needs to make arrangements for his new job. He continues to state that his new employer has placed $40,000 on a debit card for him as start up money. He states that he sleeping at night appetite is stable he reports showering each day. Mental status exam: The patient is alert he has a disheveled appearance he is dressed in hospital gowns. Eye contact is appropriate. He states his mood is fine although he would like to be discharged soon. He is reporting no suicidal or homicidal ideation. He endorses no auditory or visual hallucinations. He acknowledges no delusional thought although he appears to have some grandiose thinking still. He demonstrates no verbal or physical aggressiveness. He demonstrates no abnormal involuntary movements. Affect is bland. He does have spontaneous speech which is nonpressured he does not appear to be hypomanic or manic. Insight and judgment limited. Plan: The patient's has yet to have his deferral conference. He does appear to have some residual psychosis which I expect will clear with more sober time. We will reduce the access to Ativan. He plans on participating in outpatient chemical dependency treatment. He does have a substance use treatment order in effect. We will monitor him for safety and encourage his participation in the milieu.
[2017-09-18] MEDS: LORazepam 1 MG TAB PO PRN (13:12)
[2017-09-19] MEDS: LORazepam 1 MG TAB PO PRN ×2 (08:05→17:48)
--- NOTE | 2017-09-19 09:57 | P.PN ---
Progress Note - Text Interval history: The patient is found in his room. He does not wish to speak in an interview room stating he didn't sleep last night. He only attended 1 group yesterday it was the wrap-up group. He states that he is looking forward to being discharged. He has no questions or concerns today. He has been eating. Mental status exam: The patient is alert he is lying in bed he does make eye contact. He is cooperative there is no agitated speech or behavior. He reports his mood is fine other than he is frustrated with being in the hospital still. He denies having any suicidal or homicidal ideation intent or plan. He is reporting no auditory or visual hallucinations. He spontaneously does not describe any psychotic thinking. He denies any delusional thoughts. He remains oriented to person place and date. There is no tangential speech flight of ideas or loose associations. He does not appear hypomanic or manic. Plan: The patient does not wish to be prescribed a psychotropic medication. It appears that his symptoms are improving indicating that they were likely substance induced. He has a deferral conference tomorrow. If he continues to stabilize and if he decides to defer a court hearing after meeting with his defense attorney, we would consider discharging him tomorrow. Vital signs reviewed. He is encouraged to participate in the milieu. We have discussed the issue of attending inpatient chemical dependency treatment but he does not wish to do that and continues to state that he will follow up as an outpatient.
[2017-09-20 06:50] VITALS: BP 117/57; PULSE 71; RESP 16; TEMP 97.8
[2017-09-20] MEDS: LORazepam 1 MG TAB PO PRN (08:10)
--- NOTE | 2017-09-20 10:16 | P.DS ---
Providers Date of admission: 09/15/17 22:59 Expected date of discharge: 09/20/17 Attending physician: Andrea Shields Consults: 09/15/17 23:06 Consult Physician Routine Consulting Provider: Mina Allan Consult Reason/Comments: follow up H & P Do you want consulting provider notified?: Yes Primary care physician: Stated None - Discharge Diagnosis(es) (1) Methamphetamine-induced psychotic disorder Current Visit: Yes Status: Acute Priority: High Hospital Course: Brief summary of admission note: This patient is a 27-year-old male was readmitted to the mental health unit with mood and psychotic symptoms in the context of ongoing methamphetamine use. The patient was initially evaluated by . I am familiar with the patient as I provided coverage during a weekend during his last hospitalization. Reportedly the patient was admitted for making statements of wanting to harm himself and others and he noted having grandiose thinking. For full details please refer to the psychiatric evaluation dated 09/16/2017. Summary of hospital course: The patient was petitioned to the mental health unit a second clinical certificate was completed. The patient has his deferral conference scheduled for today. The patient's has been using methamphetamine. He was recently in court related to a treatment order for substance use. He states that he agreed to go to an outpatient clinic as he did not wish to participate in inpatient chemical dependency treatment. The patient did express thoughts that seem grandiose in nature. Otherwise he expressed no suicidal or homicidal ideation. He has been eating. He chooses not to fully engage in the milieu as he does not find groups helpful. He often was in his room. He was pleasant and cooperative during our interview see demonstrated no agitated behavior. He demonstrates future oriented thinking in terms of getting work. He does plan on attending outpatient counseling regarding his substance use. Mental status exam: The patient is alert he presents dressed in hospital gowns hygiene is adequate. He has a mildly disheveled appearance. He is pleasant and cooperative throughout the conversation. Speech is fluent spontaneous nonpressured he speaks with a southern accent. He endorses his mood is good he describes having no feelings of depression he does not have any hopelessness thinking suicidal or homicidal ideation intent or plan. He endorses no auditory or visual hallucinations or any specific delusions at this point. There is no observed evidence of psychosis. He demonstrates no verbal or physical aggressiveness. Thought process is linear he demonstrates no tangential thinking associations or flight of ideas. He does not appear hypomanic or manic. Affect is appropriately expressive he demonstrates appropriate smiling during the interview. He demonstrates future oriented thinking in terms of obtaining work attending his appointments and court dates. Impressions 1. 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 He does not require continued psychiatric hospitalization. He is appropriate for transition to outpatient care. He does not wish to participate in inpatient chemical dependency treatment but is willing to comply with outpatient chemical dependency treatment. We discussed the safety risk of relapsing and using methamphetamine alcohol or any other substance. He is instructed to return to the hospital any acute safety concerns. Patient Condition at Discharge: Stable Plan - Discharge Summary Discharge Rx Participant: No New Discharge Prescriptions: Continue Nicotine 14Mg/24Hr Patch [Habitrol] 1 patch TRANSDERM DAILY #7 patch Discontinued Ibuprofen [Motrin] 600 mg PO TID PRN #20 tab PRN Reason: Pain traZODone HCL [Desyrel] 50 mg PO HS PRN #30 tab PRN Reason: Insomnia Discharge Medication List Nicotine 14Mg/24Hr Patch [Habitrol] 1 patch TRANSDERM DAILY #7 patch 09/20/17 [ Rx] Follow up Appointment(s)/Referral(s): None,Stated [Primary Care Provider] - 1-2 days
== END 2017-09-20 12:35 | disposition home or self-care (01) | DRG 897 ==
LOC: EC 19:35 → 3MHU 22:59
PROVIDERS: ADMIT Psychiatry & Neurology Psychiatry; ATTEND Psychiatry & Neurology Psychiatry
DX: F15.259 Other stimulant dependence with stimulant-induced psychotic disorder, unspecified (principal); G89.29 Other chronic pain; F43.21 Adjustment disorder with depressed mood; M54.5 Low back pain; F17.200 Nicotine dependence, unspecified, uncomplicated; Z78.1 Physical restraint status
CPT/HCPCS: 80053; 80061; 80306; 81001; 82075; 83036; 84443; 85025; 96372; 96374; 99285

== ENCOUNTER 2017-09-23 13:22 | Inpatient (IN) | payer MEDICAID, OTHER ==
[2017-09-23] MEDS ORDERED: SODIUM CHLORIDE 0.9% 1,000 ML IV ONE (13:42)
--- NOTE | 2017-09-23 13:46 | ED ---
General Adult HPI - General Source: patient, EMS, RN notes reviewed, old records reviewed Mode of arrival: EMS Limitations: no limitations <Adonay Wright - Last Filed: 09/23/17 17:05> <Sophia Martines P - Last Filed: 09/23/17 20:00> - General Stated complaint: Mental Health Time Seen by Provider: 09/23/17 13:32 - History of Present Illness Initial comments: Patient is a 27-year-old male presenting to the emergency Department with altered mental status. Patient arrives by EMS. Patient is reported as being restless. Patient states he took 2 trazodone and a quarter of a bottle of cough medicine to help him go to sleep. Patient denies suicidal or homicidal thoughts. Patient denies hallucinations however states he does see the truth. Patient answers questions inappropriately at times. Patient denies any drug use. Patient does admit that he is "freaking out" (Adonay Wright) - Related Data Previous Rx's Medication Instructions Recorded Nicotine 14Mg/24Hr Patch [Habitrol] 1 patch TRANSDERM DAILY #7 patch 09/20/17 Allergies Allergy/AdvReac Type Severity Reaction Status Date / Time ketamine AdvReac Hallucinati Verified 09/16/17 00:59 ons Review of Systems ROS Other: All systems not noted in ROS Statement are negative. Constitutional: Denies: fever Eyes: Denies: eye pain ENT: Denies: ear pain Respiratory: Denies: cough Cardiovascular: Denies: chest pain Endocrine: Denies: fatigue Gastrointestinal: Denies: abdominal pain Genitourinary: Denies: dysuria Musculoskeletal: Denies: back pain Skin: Denies: rash Neurological: Denies: weakness <Adonay Wright - Last Filed: 09/23/17 17:05> ROS Other: All systems not noted in ROS Statement are negative. <Sophia Martines P - Last Filed: 09/23/17 20:00> ROS Statement: Those systems with pertinent positive or pertinent negative responses have been documented in the HPI. Past Medical History Additional Past Medical History / Comment(s): LOWER BACK PROBLEMS-Chronic back pain. History of Any Multi-Drug Resistant Organisms: None Reported Past Surgical History: No Surgical Hx Reported Past Anesthesia/Blood Transfusion Reactions: No Reported Reaction Smoking Status: Current every day smoker - Past Family History Mother Family Medical History: No Reported History Additional Family Medical History / Comment(s): Mother is alive at 45 years old. Father Additional Family Medical History / Comment(s): Degenerative disc disease. Father is alive at the age of 5454 years old. <Adonay Wright - Last Filed: 09/23/17 17:05> General Exam Limitations: no limitations General appearance: alert, other (Patient is restless) Head exam: Present: atraumatic Eye exam: Present: normal appearance, PERRL, EOMI, nystagmus ENT exam: Present: normal oropharynx Neck exam: Present: normal inspection. Absent: tenderness Respiratory exam: Present: normal lung sounds bilaterally Cardiovascular Exam: Present: regular rate, normal rhythm GI/Abdominal exam: Present: soft. Absent: tenderness Extremities exam: Present: normal inspection Neurological exam: Present: alert, oriented X3, CN II-XII intact. Absent: motor sensory deficit Expanded Neurological exam: Present: protecting the airway Speech: Present: fluid speech Motor strength exam: RUE: 5, LUE: 5, RLE: 5, LLE: 5 Eye Response: (4) open spontaneously Motor Response: (6) obeys commands Verbal Response: (5) oriented Psychiatric exam: Present: normal affect, normal mood Skin exam: Present: normal color <Adonay Wright - Last Filed: 09/23/17 17:05> Course <Adonay Wright - Last Filed: 09/23/17 17:05> <Sophia Martines - Last Filed: 09/23/17 20:00> Vital Signs 09/23/17 09/23/17 09/23/17 13:23 14:06 14:58 Temperature 99 F Pulse Rate 107 H 102 H 63 Respiratory 20 20 18 Rate Blood Pressure 132/78 132/91 139/91 O2 Sat by Pulse 99 98 99 Oximetry 09/23/17 09/23/17 16:18 17:23 Temperature 97.6 F Pulse Rate 68 67 Respiratory 18 18 Rate Blood Pressure 129/75 127/78 O2 Sat by Pulse 99 99 Oximetry - Reevaluation(s) Reevaluation #1: 09/23/17 17:05 Patient reevaluated and no longer appears restless. Patient still has scattered thoughts. Mental health has been consulted. (Adonay Wright) EKG Findings - EKG Comments: EKG Findings:: Normal sinus rhythm 90. MI 142. QRS 76. QT 342. QTC 418. Normal axis. Normal QRS. No acute ST change. <Adonay Wright - Last Filed: 09/23/17 17:05> Medical Decision Making - Lab Data Result diagrams: 09/23/17 13:42 09/23/17 13:42 <Adonay Wright - Last Filed: 09/23/17 17:05> - Lab Data Result diagrams: 09/23/17 13:42 09/23/17 13:42 <Sophia Martines - Last Filed: 09/23/17 20:00> - Medical Decision Making Patient care was signed out to me by Dr. Wright. Patient presents acutely psychotic after methamphetamine use. She remained psychotic throughout ED stay. Patient was noted to be walking around his room, having conversations with people who were not there. Patient offered no meaningful history. Patient was evaluated by psychiatry who accepted the patient to their service. Upon being advised that he was being transferred to the psychiatric floor the patient became agitated. By mouth Ativan was ordered. (Sophia Martines) - Lab Data Lab Results 09/23/17 09/23/17 09/23/17 Range/Units 13:42 13:42 13:42 WBC 12.0 H (3.8-10.6) k/uL RBC 5.31 (4.30-5.90) m/uL Hgb 16.2 (13.0-17.5) gm/dL Hct 46.7 (39.0-53.0) % MCV 88.0 (80.0-100.0) fL MCH 30.6 (25.0-35.0) pg MCHC 34.8 (31.0-37.0) g/dL RDW 13.2 (11.5-15.5) % Plt Count 240 (150-450) k/uL Neutrophils % 74 % Lymphocytes % 17 % Monocytes % 8 % Eosinophils % 1 % Basophils % 0 % Neutrophils # 8.8 H (1.3-7.7) k/uL Lymphocytes # 2.0 (1.0-4.8) k/uL Monocytes # 0.9 (0-1.0) k/uL Eosinophils # 0.1 (0-0.7) k/uL Basophils # 0.0 (0-0.2) k/uL PT (9.0-12.0) sec INR (<1.2) APTT (22.0-30.0) sec Sodium 142 (137-145) mmol/L Potassium 4.1 (3.5-5.1) mmol/L Chloride 107 (98-107) mmol/L Carbon Dioxide 23 (22-30) mmol/L Anion Gap 12 mmol/L BUN 21 H (9-20) mg/dL Creatinine 1.33 H (0.66-1.25) mg/dL Est GFR (CKD-EPI)AfAm 83 (>60 ml/min/1.73 sqM) Est GFR (CKD-EPI)NonAf 72 (>60 ml/min/1.73 sqM) Glucose 93 (74-99) mg/dL Calcium 9.9 (8.4-10.2) mg/dL Total Bilirubin 4.3 H (0.2-1.3) mg/dL AST 73 H (17-59) U/L ALT 164 H (21-72) U/L Alkaline Phosphatase 60 (38-126) U/L Ammonia (<30) umol/L Total Creatine Kinase 139 (55-170) U/L CK-MB (CK-2) 0.6 (0.0-2.4) ng/mL CK-MB (CK-2) Rel Index 0.4 Troponin I <0.012 (0.000-0.034) ng/mL Total Protein 8.4 H (6.3-8.2) g/dL Albumin 4.8 (3.5-5.0) g/dL Urine Color Urine Appearance (Clear) Urine pH (5.0-8.0) Ur Specific [place] (1.001-1.035) Urine Protein (Negative) Urine Glucose (UA) (Negative) Urine Ketones (Negative) Urine Blood (Negative) Urine Nitrite (Negative) Urine Bilirubin (Negative) Urine Urobilinogen (<2.0) mg/dL Ur Leukocyte Esterase (Negative) Salicylates <1.0 mg/dL Urine Opiates Screen (NotDetected) Ur Oxycodone Screen (NotDetected) Urine Methadone Screen (NotDetected) Ur Propoxyphene Screen (NotDetected) Acetaminophen <10.0 ug/mL Ur Barbiturates Screen (NotDetected) U Tricyclic Antidepress (NotDetected) Ur Phencyclidine Scrn (NotDetected) Ur Amphetamines Screen (NotDetected) U Methamphetamines Scrn (NotDetected) U Benzodiazepines Scrn (NotDetected) Urine Cocaine Screen (NotDetected) U Marijuana (THC) Screen (NotDetected) Serum Alcohol <10 mg/dL 09/23/17 09/23/17 09/23/17 Range/Units 13:42 13:42 15:53 WBC (3.8-10.6) k/uL RBC (4.30-5.90) m/uL Hgb (13.0-17.5) gm/dL Hct (39.0-53.0) % MCV (80.0-100.0) fL MCH (25.0-35.0) pg MCHC (31.0-37.0) g/dL RDW (11.5-15.5) % Plt Count (150-450) k/uL Neutrophils % % Lymphocytes % % Monocytes % % Eosinophils % % Basophils % % Neutrophils # (1.3-7.7) k/uL Lymphocytes # (1.0-4.8) k/uL Monocytes # (0-1.0) k/uL Eosinophils # (0-0.7) k/uL Basophils # (0-0.2) k/uL PT 10.7 (9.0-12.0) sec INR 1.1 (<1.2) APTT 24.1 (22.0-30.0) sec Sodium (137-145) mmol/L Potassium (3.5-5.1) mmol/L Chloride (98-107) mmol/L Carbon Dioxide (22-30) mmol/L Anion Gap mmol/L BUN (9-20) mg/dL Creatinine (0.66-1.25) mg/dL Est GFR (CKD-EPI)AfAm (>60 ml/min/1.73 sqM) Est GFR (CKD-EPI)NonAf (>60 ml/min/1.73 sqM) Glucose (74-99) mg/dL Calcium (8.4-10.2) mg/dL Total Bilirubin (0.2-1.3) mg/dL AST (17-59) U/L ALT (21-72) U/L Alkaline Phosphatase (38-126) U/L Ammonia 10 (<30) umol/L Total Creatine Kinase (55-170) U/L CK-MB (CK-2) (0.0-2.4) ng/mL CK-MB (CK-2) Rel Index Troponin I (0.000-0.034) ng/mL Total Protein (6.3-8.2) g/dL Albumin (3.5-5.0) g/dL Urine Color Yellow Urine Appearance Clear (Clear) Urine pH 5.0 (5.0-8.0) Ur Specific [place] 1.011 (1.001-1.035) Urine Protein Negative (Negative) Urine Glucose (UA) Negative (Negative) Urine Ketones Negative (Negative) Urine Blood Negative (Negative) Urine Nitrite Negative (Negative) Urine Bilirubin Negative (Negative) Urine Urobilinogen <2.0 (<2.0) mg/dL Ur Leukocyte Esterase Negative (Negative) Salicylates mg/dL Urine Opiates Screen Not Detected (NotDetected) Ur Oxycodone Screen Not Detected (NotDetected) Urine Methadone Screen Not Detected (NotDetected) Ur Propoxyphene Screen Not Detected (NotDetected) Acetaminophen ug/mL Ur Barbiturates Screen Not Detected (NotDetected) U Tricyclic Antidepress Not Detected (NotDetected) Ur Phencyclidine Scrn Not Detected (NotDetected) Ur Amphetamines Screen Detected H (NotDetected) U Methamphetamines Scrn Detected H (NotDetected) U Benzodiazepines Scrn Not Detected (NotDetected) Urine Cocaine Screen Not Detected (NotDetected) U Marijuana (THC) Screen Not Detected (NotDetected) Serum Alcohol mg/dL Disposition <Adonay Wright - Last Filed: 09/23/17 17:05> Decision Time: 20:00 <Sophia Martines - Last Filed: 09/23/17 20:00> Clinical Impression: Psychosis Disposition: TRANSFER TO PSYCH HOSP/UNIT Referrals: None,Stated [Primary Care Provider] - 1-2 days
[2017-09-23 13:57] LABS: Basophils % (A) 0 %; Eosinophils # (A) 0.1 k/uL (0-0.7); Eosinophils % (A) 1 %; HCT 46.7 % (39.0-53.0); HGB 16.2 gm/dL (13.0-17.5); Lymphocytes % (A) 17 %; MCH 30.6 pg (25.0-35.0); MCHC 34.8 g/dL (31.0-37.0); Mean Platelet Volume 7.5; Monocytes # (A) 0.9 k/uL (0-1.0); Monocytes % (A) 8 %; Neutrophils # (A) 8.8 k/uL (1.3-7.7); Neutrophils % (A) 74 %; Platelet Count 240 k/uL (150-450); RBC 5.31 m/uL (4.30-5.90); RDW 13.2 % (11.5-15.5)
[2017-09-23 14:07] LABS: ALT 164 U/L (21-72); AST 73 U/L (17-59); Acetaminophen <10.0 ug/mL; Albumin 4.8 g/dL (3.5-5.0); Alcohol <10 mg/dL; Alkaline Phosphatase 60 U/L (38-126); Anion Gap 12 mmol/L; Blood Urea Nitrogen 21 mg/dL (9-20); Calcium 9.9 mg/dL (8.4-10.2); Carbon Dioxide 23 mmol/L (22-30); Chloride 107 mmol/L (98-107); Glucose 93 mg/dL (74-99); Potassium 4.1 mmol/L (3.5-5.1); Salicylate <1.0 mg/dL; Sodium 142 mmol/L (137-145); Total Bilirubin 4.3 mg/dL (0.2-1.3); Total Protein 8.4 g/dL (6.3-8.2)
[2017-09-23 14:09] LABS: INR 1.1 (<1.2); Partial Thromboplastin Time 24.1 sec (22.0-30.0); Prothrombin Time 10.7 sec (9.0-12.0)
[2017-09-23 14:17] LABS: Creatine Kinase 139 U/L (55-170)
[2017-09-23 14:30] LABS: Creatine Kinase MB 0.6 ng/mL (0.0-2.4); Troponin I <0.012 ng/mL (0.000-0.034)
--- NOTE | 2017-09-23 14:59 | XR ---
EXAMINATION TYPE: XR chest 2V DATE OF EXAM: 09/23/2017 COMPARISON: Prior chest x-ray 08/16/2017 HISTORY: Altered mental status TECHNIQUE: Frontal and lateral views of the chest are obtained. FINDINGS: Patient is rotated. There are overlying cardiac leads. There is no focal air space opacity, pleural effusion, or pneumothorax seen. The cardiac silhouette size is within normal limits. The osseous structures are intact. IMPRESSION: No acute cardiopulmonary process.
[2017-09-23 15:59] LABS: Appearance,Urine Clear (Clear); Bilirubin,Urine Negative (Negative); Blood,Urine Negative (Negative); Color,Urine Yellow; Glucose,Urine (UA) Negative (Negative); Ketones,Urine Negative (Negative); Leukocyte Esterase,Urine Negative (Negative); Nitrite,Urine Negative (Negative); Protein,Urine Negative (Negative); Specific Gravity,Urine 1.011 (1.001-1.035); Urobilinogen,Urine <2.0 mg/dL (<2.0)
[2017-09-23 16:07] LABS: Amphetamine Screen,Urine Detected (NotDetected); Barbiturate Screen,Urine Not Detected (NotDetected); Benzodiazepines Screen,Urine Not Detected (NotDetected); Cocaine Screen,Urine Not Detected (NotDetected); Methadone Screen, Urine Not Detected (NotDetected); Opiate Screen,Urine Not Detected (NotDetected); Oxycodone Screen, Urine Not Detected (NotDetected); Phencyclidine Screen,Urine Not Detected (NotDetected); Tricyclic Antidepressant,Urine Not Detected (NotDetected); Urn Cannabinoid Scrn Not Detected (NotDetected)
[2017-09-23] MEDS ORDERED: LORazepam 1 MG TAB PO STA (19:58)
[2017-09-23] MEDS ORDERED: MAG HYDROX/AL HYDROX/SIMETH 30 ML CUP PO PRN (20:21)
[2017-09-23] MEDS ORDERED: ACETAMINOPHEN TAB 325 MG TAB PO PRN (20:21)
[2017-09-23] MEDS ORDERED: LORazepam 1 MG TAB PO PRN (20:21)
[2017-09-23] MEDS ORDERED: ZIPRASIDONE 20 MG VIAL IM PRN (20:21)
[2017-09-23] MEDS ORDERED: MAGNESIUM HYDROXIDE 2,400 MG/10 ML CUP PO PRN (20:21)
[2017-09-23] MEDS ORDERED: LORazepam 2 MG/ML INJ IM PRN (20:24)
--- NOTE | 2017-09-23 23:45 | P.HPIM ---
History of Present Illness H&P Date: 09/23/17 Chief Complaint: medical management 27-year-old male with no significant past medical history of present hospital by EMS due to altered mental status and abnormal behaviors. Currently patient is still psychotic and unable to provide any meaningful history at this time. Per ER documentation he overdosed on cough syrup and trazodone. There is also reports off using methamphetamine. Patient indicates that he does not have any medical concerns at this point Review of Systems Unable to obtain any meaningful review of systems due to patient mental status as he is in acute psychosis Past Medical History Additional Past Medical History / Comment(s): LOWER BACK PROBLEMS-Chronic back pain. History of Any Multi-Drug Resistant Organisms: None Reported Past Surgical History: No Surgical Hx Reported Past Anesthesia/Blood Transfusion Reactions: No Reported Reaction Smoking Status: Current every day smoker - Past Family History Mother Family Medical History: No Reported History Additional Family Medical History / Comment(s): Mother is alive at 45 years old. Father Additional Family Medical History / Comment(s): Degenerative disc disease. Father is alive at the age of 5454 years old. Medications and Allergies Home Medications Medication Instructions Recorded Confirmed Type Nicotine 14Mg/24Hr Patch [Habitrol] 1 patch TRANSDERM DAILY #7 patch 09/20/17 Rx Allergies Allergy/AdvReac Type Severity Reaction Status Date / Time ketamine AdvReac Hallucinati Verified 09/16/17 00:59 ons Physical Exam Vitals: Vital Signs Temp Pulse Pulse Resp BP BP Pulse Ox 09/23/17 20:37 97.4 F L 70 18 119/85 09/23/17 20:20 97 F L 68 18 118/70 98 09/23/17 17:23 97.6 F 67 18 127/78 99 09/23/17 16:18 68 18 129/75 99 09/23/17 14:58 63 18 139/91 99 09/23/17 14:06 102 H 20 132/91 98 09/23/17 13:23 99 F 107 H 20 132/78 99 Intake and Output 09/23/17 09/23/17 09/24/17 14:59 22:59 06:59 Other: Weight 95.254 kg 86.645 kg Constitutional: No acute distress, speaking gibberish, answering with no everything Eyes: Anicteric sclerae, moist conjunctiva Pupils equal round reactive to light ENMT: NC/AT Oropharynx clear, no erythema, or exudates Neck: Supple, FROM, no masses, or JVD No carotid bruits No thyromegaly Lungs: Clear to auscultation Clear to percussion Normal respiratory effort, no accessory muscle use Cardiovascular: Heart regular in rate and rhythm, No murmurs, gallops, or rubs No peripheral edema Abdominal: Soft Nontender, no guarding, rebound or rigidity Abdomen moving with respiration Normoactive bowel sounds No hepatomegaly, No splenomegaly No palpable mass No abdominal wall hernia noted Skin: Normal temperature, tone, texture, turgor No induration No subcutaneous nodules No rash, lesions No ulcers Extremities: No digital cyanosis No clubbing Pedal pulses intact and symmetrical Radial pulses intact and symmetrical No calf tenderness Psychiatric: Alert and oriented to person only Manic affect Poor judgment Neuro Muscles Strength 5/5 in all 4 extremities Sensation to light touch grossly present throughout No focal sensory deficits Lymphatics: no palpable cervical or supraclavicular , or inguinal lymph nodes Results CBC & Chem 7: 09/23/17 13:42 09/23/17 13:42 Labs: Abnormal Lab Results - Last 24 Hours (Table) 09/23/17 09/23/17 09/23/17 Range/Units 13:42 13:42 15:53 WBC 12.0 H (3.8-10.6) k/uL Neutrophils # 8.8 H (1.3-7.7) k/uL BUN 21 H (9-20) mg/dL Creatinine 1.33 H (0.66-1.25) mg/dL Total Bilirubin 4.3 H (0.2-1.3) mg/dL AST 73 H (17-59) U/L ALT 164 H (21-72) U/L Total Protein 8.4 H (6.3-8.2) g/dL Ur Amphetamines Screen Detected H (NotDetected) U Methamphetamines Scrn Detected H (NotDetected) Assessment and Plan Assessment: 27-year-old male with no significant past medical history was brought into the hospital due to altered mental status and abnormal behavior. EMS notes reported overdosing on cough syrup and trazodone. There is also ER reporting of methamphetamine use. Patient is acutely psychotic at this time unable to provide any meaningful history. Medicine was consult for medical management Plan: Acute psychosis secondary to substance abuse Management per psych Acute kidney injury secondary to elevated creatinine Avoid nephrotoxic meds Encourage hydration Follow-up creatinine level History of hepatitis C Chronically hyperbilirubinemia Consider outpatient follow-up for treatment Low risk for DVT patient is ambulatory Follow-up labs Thank you for allowing us to participate in the care of this patient. We will follow peripherally. Do not hesitate to contact us with questions. Someone can be reached from the [facility] hospitalist group at all hours of the day at [phone]. Cranial Nerve Examination - Cranial Nerves Cranial Nerve II- Optic: Intact Cranial Nerve III- Oculomotor: Intact Cranial Nerve IV- Trochlear: Intact Cranial Nerve V- Trigeminal: Intact Cranial Nerve - Abducens: Intact Cranial Nerve VII- Facial: Intact Cranial Nerve VIII- Auditory: Intact Cranial Nerve IX- Glossopharyngeal: Intact Cranial Nerve X- Vagus: Intact Cranial Nerve XI- Accessory: Intact Cranial Nerve XII- Hypoglossal: Intact
[2017-09-24] MEDS: NICOTINE 14MG/24HR PATCH TRANSDERM SCH (09:24)
[2017-09-24 09:56] LABS: ALT 136 U/L (21-72); AST 62 U/L (17-59); Albumin 4.1 g/dL (3.5-5.0); Alkaline Phosphatase 50 U/L (38-126); Anion Gap 6 mmol/L; Blood Urea Nitrogen 15 mg/dL (9-20); Calcium 9.5 mg/dL (8.4-10.2); Carbon Dioxide 31 mmol/L (22-30); Chloride 104 mmol/L (98-107); Glucose 84 mg/dL (74-99); Potassium 4.5 mmol/L (3.5-5.1); Sodium 141 mmol/L (137-145); Total Bilirubin 3.5 mg/dL (0.2-1.3); Total Protein 7.3 g/dL (6.3-8.2)
--- NOTE | 2017-09-24 11:11 | P.HP ---
Psychiatric H&P - . History & Physical: Allergies Allergy/AdvReac Type Severity Reaction Status Date / Time ketamine AdvReac Hallucinati Verified 09/16/17 00:59 ons Vital Signs Temp 97.9 F 09/24/17 06:19 Pulse 87 09/24/17 06:19 Resp 16 09/24/17 06:19 BP 125/71 09/24/17 06:19 Pulse Ox 98 09/23/17 20:20 Intake & Output 09/23/17 09/24/17 09/24/17 18:59 06:59 18:59 Weight 95.254 kg 86.645 kg Laboratory Last Values WBC 12.0 k/uL (3.8-10.6) H 09/23/17 13:42 RBC 5.31 m/uL (4.30-5.90) 09/23/17 13:42 Hgb 16.2 gm/dL (13.0-17.5) 09/23/17 13:42 Hct 46.7 % (39.0-53.0) 09/23/17 13:42 MCV 88.0 fL (80.0-100.0) 09/23/17 13:42 MCH 30.6 pg (25.0-35.0) 09/23/17 13:42 MCHC 34.8 g/dL (31.0-37.0) 09/23/17 13:42 RDW 13.2 % (11.5-15.5) 09/23/17 13:42 Plt Count 240 k/uL (150-450) 09/23/17 13:42 Neutrophils % 74 % 09/23/17 13:42 Lymphocytes % 17 % 09/23/17 13:42 Monocytes % 8 % 09/23/17 13:42 Eosinophils % 1 % 09/23/17 13:42 Basophils % 0 % 09/23/17 13:42 Neutrophils # 8.8 k/uL (1.3-7.7) H 09/23/17 13:42 Lymphocytes # 2.0 k/uL (1.0-4.8) 09/23/17 13:42 Monocytes # 0.9 k/uL (0-1.0) 09/23/17 13:42 Eosinophils # 0.1 k/uL (0-0.7) 09/23/17 13:42 Basophils # 0.0 k/uL (0-0.2) 09/23/17 13:42 PT 10.7 sec (9.0-12.0) 09/23/17 13:42 INR 1.1 (<1.2) 09/23/17 13:42 APTT 24.1 sec (22.0-30.0) 09/23/17 13:42 Sodium 141 mmol/L (137-145) 09/24/17 09:20 Potassium 4.5 mmol/L (3.5-5.1) 09/24/17 09:20 Chloride 104 mmol/L (98-107) 09/24/17 09:20 Carbon Dioxide 31 mmol/L (22-30) H 09/24/17 09:20 Anion Gap 6 mmol/L 09/24/17 09:20 BUN 15 mg/dL (9-20) 09/24/17 09:20 Creatinine 1.13 mg/dL (0.66-1.25) 09/24/17 09:20 Est GFR (CKD-EPI)AfAm >90 (>60 ml/min/1.73 sqM) 09/24/17 09:20 Est GFR (CKD-EPI)NonAf 88 (>60 ml/min/1.73 sqM) 09/24/17 09:20 Glucose 84 mg/dL (74-99) 09/24/17 09:20 Calcium 9.5 mg/dL (8.4-10.2) 09/24/17 09:20 Total Bilirubin 3.5 mg/dL (0.2-1.3) H 09/24/17 09:20 AST 62 U/L (17-59) H 09/24/17 09:20 ALT 136 U/L (21-72) H 09/24/17 09:20 Alkaline Phosphatase 50 U/L (38-126) 09/24/17 09:20 Ammonia 10 umol/L (<30) 09/23/17 13:42 Total Creatine Kinase 139 U/L (55-170) 09/23/17 13:42 CK-MB (CK-2) 0.6 ng/mL (0.0-2.4) 09/23/17 13:42 CK-MB (CK-2) Rel Index 0.4 09/23/17 13:42 Troponin I <0.012 ng/mL (0.000-0.034) 09/23/17 13:42 Total Protein 7.3 g/dL (6.3-8.2) 09/24/17 09:20 Albumin 4.1 g/dL (3.5-5.0) 09/24/17 09:20 Urine Color Yellow 09/23/17 15:53 Urine Appearance Clear (Clear) 09/23/17 15:53 Urine pH 5.0 (5.0-8.0) 09/23/17 15:53 Ur Specific [place] 1.011 (1.001-1.035) 09/23/17 15:53 Urine Protein Negative (Negative) 09/23/17 15:53 Urine Glucose (UA) Negative (Negative) 09/23/17 15:53 Urine Ketones Negative (Negative) 09/23/17 15:53 Urine Blood Negative (Negative) 09/23/17 15:53 Urine Nitrite Negative (Negative) 09/23/17 15:53 Urine Bilirubin Negative (Negative) 09/23/17 15:53 Urine Urobilinogen <2.0 mg/dL (<2.0) 09/23/17 15:53 Ur Leukocyte Esterase Negative (Negative) 09/23/17 15:53 Salicylates <1.0 mg/dL 09/23/17 13:42 Urine Opiates Screen Not Detected (NotDetected) 09/23/17 15:53 Ur Oxycodone Screen Not Detected (NotDetected) 09/23/17 15:53 Urine Methadone Screen Not Detected (NotDetected) 09/23/17 15:53 Ur Propoxyphene Screen Not Detected (NotDetected) 09/23/17 15:53 Acetaminophen <10.0 ug/mL 09/23/17 13:42 Ur Barbiturates Screen Not Detected (NotDetected) 09/23/17 15:53 U Tricyclic Antidepress Not Detected (NotDetected) 09/23/17 15:53 Ur Phencyclidine Scrn Not Detected (NotDetected) 09/23/17 15:53 Ur Amphetamines Screen Detected (NotDetected) H 09/23/17 15:53 U Methamphetamines Scrn Detected (NotDetected) H 09/23/17 15:53 U Benzodiazepines Scrn Not Detected (NotDetected) 09/23/17 15:53 Urine Cocaine Screen Not Detected (NotDetected) 09/23/17 15:53 U Marijuana (THC) Screen Not Detected (NotDetected) 09/23/17 15:53 Serum Alcohol <10 mg/dL 09/23/17 13:42 09/24/17 10:58 IDENTIFYING DATA: This patient is a 27-year-old male who was readmitted to the mental health unit for symptoms of psychosis and agitation. HPI: The patient was brought to the hospital by police. He was demonstrating erratic and psychotic behavior. The patient was just discharged from our mental health unit last Sunday. He has a known diagnosis of substance-induced psychosis specifically methamphetamine. He was on her mental health unit for several days his symptoms of psychosis had resolved. He is on an existing court order to address his substance use and he has elected to participate in outpatient treatment. With each admission he refuses inpatient chemical dependency treatment. Today he is found in his room he refuses to follow me to an interview room but will speak to me for a few moments. He states he is here because "the same woman keeps put me here". He admits to using methamphetamine on his day of discharge he consumed cough syrup and used to trazodone tablets. He continues to refuse inpatient chemical dependency treatment. He states he is hoping his mother will send him a ticket so he can go down to [place] and reside there. He is reporting no acute suicidal or homicidal ideation. It appears in the ER he demonstrated symptoms of psychosis as they reported he seemed to be responding to hallucinations. PAST PSYCHIATRIC HISTORY: This is the third psychiatric admission on this unit since August of this year. He has not wanted to take any antipsychotic medication as the symptoms of psychosis typically resolve during the hospitalization as he detoxes from methamphetamine. No history of suicide attempts. He has used trazodone in the past for sleep. PMH: Documented history of hepatitis C ALLERGIES: Ketamine MEDICATIONS: None CHEMICAL DEPENDENCY HISTORY: Ongoing use of methamphetamine, he used on the day of discharge. He does have a history of overusing alcohol on the past as well as prescription opiates. Drug screen was positive for methamphetamine. I do not believe he has participated in inpatient chemical dependency treatment in the past. FAMILY PSYCHIATRIC HISTORY: None reported FAMILY CHEMICAL DEPENDENCY HISTORY: Unknown SOCIAL HISTORY: The patient is 27 years old he reports having no established residence in this area. He did graduate from high school but did have a history of violent behavior in school and was suspended several times. He has previously reported being raised by both parents no history of service he is unemployed. He had been arrested and was in [facility] for 1 year for breaking and entering and possession of illicit drugs, no abuse history reported MENTAL STATUS EXAM: The patient is a male appearing his stated age. He is dressed in hospital attire. Hygiene and grooming are impaired. Little eye contact today as he is lying in bed. He does not wish to speak in an interview room. He moves his lower extremities while lying in bed. He is answering questions in a fashion to facilitate a discharge and reports having no symptoms. Specifically he denies having any suicidal or homicidal ideation. He is endorsing no auditory or visual hallucinations or specific delusions. At this time he is not a valid historian. He demonstrates no verbal or physical aggressiveness. He is oriented to person place and month and year. He is able to name the days of the week backwards. Thought process demonstrates no tangential thinking loose associations or flight of ideas. STRENGTHS/WEAKNESSES: Strengths: Court order for substance abuse treatment, weaknesses: Ongoing substance use, unemployment INTELLECTUAL FUNCTIONING: Average IMPRESSIONS: [] 1. Psychosis secondary to methamphetamine use, methamphetamine use disorder, rule out history of alcohol use disorder, opiate abuse disorder PLAN: The patient has been admitted to the mental health unit he is here voluntarily. His symptoms of psychosis typically resolve during the hospitalization without use of antipsychotic medication. We will monitor for need of antipsychotic medication. The patient continues to relapse with methamphetamine causing psychosis subsequently causing psychiatric hospitalization. We will contact the court regarding options as it is clear the patient requires inpatient chemical dependency treatment. He is scheduled to have an outpatient appointment focusing on chemical dependency treatment tomorrow but it is unlikely this will be an effective course. We will monitor him for safety. He is encouraged to attend groups. He will be seen by internal medicine for routine history and physical exam. Vital signs reviewed.
[2017-09-25] MEDS: NICOTINE 14MG/24HR PATCH TRANSDERM SCH (09:18)
--- NOTE | 2017-09-25 10:24 | P.PN ---
Progress Note - Text Interval history: The patient is found in his room he refuses to follow me to an interview room. He initially states he does not wish to talk in covers his head with a sheet. He denies having any symptoms and provides responses to questions before I finish the question. He indicates he would like to be discharged. He is endorsing no hallucinations he is endorsing no thoughts of harming himself. The patient continues to isolate in his room. Mental status exam: The patient is alert he is lying in bed he is only minimally cooperative with the interview this morning. He is an invalid historian at this point which is demonstrated by his quick dismissal of questions presented to him. He demonstrates no verbal or physical aggressiveness. He demonstrates no abnormal involuntary movements. Insight and judgment limited. He appears to be in no physical distress. Plan: It is difficult to ascertain the extent of his psychotic thoughts at this time due to his lack of participation in the interview. Over the last 2 admissions he presented with psychosis that cleared during the stay without use of medication for psychosis. We will encourage his participation in the milieu. We will continue to monitor him for safety. We'll discuss his care further in treatment team meeting today.
[2017-09-26] MEDS: NICOTINE 14MG/24HR PATCH TRANSDERM SCH (08:05)
--- NOTE | 2017-09-26 09:59 | P.PN ---
Progress Note - Text Interval history: The patient is found in his room he does follow me to an interview room reluctantly. He reports that he is doing fine and he wants to be discharged. He did decide to sign in voluntarily versus going on to a court hearing. He continues to feel he does not need medication. Again are theory is that his presenting symptoms are due to ongoing methamphetamine use. He continues to refuse inpatient chemical dependency treatment. He states his plan is to go to [place] upon discharge if the funds are available for the ticket. We tried to review symptoms he demonstrated the emergency room and he has no insight into those. Mental status exam: The patient is alert he has a disheveled appearance hygiene is adequate. Eye contact is appropriate. He is calm but somewhat argumentative regarding why he is in the hospital. He does not raise his voice he demonstrates no physical aggressiveness. He maintains a constricted affect. He reports no suicidal or homicidal ideation intent or plan. He is endorsing no auditory or visual hallucinations. He endorses no specific delusions as we reviewed several types. He demonstrates no abnormal involuntary movements. He remains oriented to person place and date. He demonstrates no tangential thinking loose associations or flight of ideas. Plan: The patient's psychosis appears to be improving. He is encouraged to participate more in the milieu. Vital signs reviewed. He is informed that we need to know where he is going to be going upon discharge and we need to speak to an individual at that placement to confirm. We continued to discuss the importance of inpatient chemical dependency treatment but he defers that option.
[2017-09-27] MEDS: NICOTINE 14MG/24HR PATCH TRANSDERM SCH (08:44)
--- NOTE | 2017-09-27 14:56 | P.PN ---
Progress Note - Text Progress Note Date: 09/27/17 Interval History: Patient is a 27-year-old male who is being seen in coverage for Dr. Shields. Patient was seen today and he reports that he slept fairly well last night. He states that his family is irritating him because think he should go to [place] and live with a brother. He states that he is not having any paranoid thoughts and no auditory hallucinations. Patient states that he continues to not wish to go to any inpatient rehab facility. He states that he is trying to arrange a discharge living situation. Mental Status:Appearance/Attitude: Patient is casually dressed, makes good eye contact and was cooperative. Behavior: Patient did not display any psychomotor agitation or retardation. Speech/Language: Patient's speech was spontaneous of normal volume and rhythm and he is coherent. Thought Process: Patient is goal-directed no evidence of loose association or flight of ideas. Thought Content: Patient denies any auditory or visual hallucinations and no delusions or paranoid ideation were elicited. Patient states that he slept fairly well last night and his appetite is good. He states that he is not interested in attending any rehab programs. He states that his family is irritating him because think he should go to [place]. Suicidal/Homicidal Ideation: Patient denied any current suicidal or homicidal ideation Sensorium/Cognition: Patient is alert and oriented to person, place, and time and his recent and remote memory are grossly intact. Mood/Affect: Patient's mood was pleasant and his affect is appropriate Insight/Judgment: Patient's insight and judgment are fair Assessment: Patient slept 7 hours last night, states that he is irritated with his family to [place]. In team treatment meeting it was discussed that he is unable to return to live with his aunt because they have 18 by mouth order against him. Patient is currently not on any medication. Plan: Patient is currently not on any medication, he is not exhibiting any psychotic symptoms and is attempting to arrange outpatient living situation. Patient continues to refuse inpatient drug rehab.
[2017-09-28 06:38] VITALS: BP 113/56; PULSE 57; RESP 18; TEMP 97.8
[2017-09-28] MEDS: NICOTINE 14MG/24HR PATCH TRANSDERM SCH (08:59)
--- NOTE | 2017-09-28 11:10 | P.DS ---
Providers Date of admission: 09/23/17 20:08 Expected date of discharge: 09/28/17 Attending physician: Andrea Shields Consults: 09/23/17 20:21 Consult Physician Routine Consulting Provider: Mina Physician Consult Reason/Comments: H & P and medical care Do you want consulting provider notified?: Yes Primary care physician: Stated None - Discharge Diagnosis(es) (1) Methamphetamine-induced psychotic disorder Current Visit: No Status: Acute Priority: High (2) Methamphetamine use disorder, severe Current Visit: Yes Status: Acute Priority: High Hospital Course: Brief summary admission note: This patient is a 27-year-old male who was readmitted to the mental health unit for symptoms of psychosis and agitation in the context of again using methamphetamine. The patient had reported taking 2 trazodone's and doing a line of methamphetamine after his discharge from the mental health unit. He demonstrated agitated behavior and was brought to the hospital by police. For full details please refer to my psychiatric evaluation dictated 09/24/2017. Summary of hospital course: The patient was admitted to the mental health unit he is on a deferral status. He signed in voluntarily. Again we presumed his symptoms of psychosis were due to use of methamphetamine. We did not require use of an antipsychotic and his symptoms of psychosis did resolve while on the mental health unit. Again he isolated in his room for most of the stay. Over the last 24 hours he has been out of his room more and socializing with peers. He demonstrated no agitated behavior. He was strongly encouraged to reconsider inpatient chemical dependency treatment but he continues to refuse. He is on an order for substance abuse treatment. He did [facility] as he was hospitalized. We did contact the court to explore treatment options. We are not able to require inpatient chemical dependency treatment as part of his order at this time. This needs to be done by the treating outpatient facility. The patient's states he will stay at the local assisted upon discharge. Mental status exam: The patient is alert he is dressed in hospital gowns. Eye contact is appropriate. Hygiene is adequate. He reports his mood is good. He denies having any suicidal or homicidal ideation intent or plan. He is reporting no auditory or visual hallucinations or any specific delusions. There is no observed evidence of psychosis. His thought process is linear he demonstrates no tangential thinking loose associations or flight of ideas. He does not appear hypomanic or manic. Insight and judgment are grossly intact. He demonstrates no verbal or physical aggressiveness he demonstrates no abnormal involuntary movements. Affect is more appropriately expressive. He is fully oriented to person place and date. Impressions 1. Methamphetamine induced psychotic disorder, methamphetamine use disorder, history of alcohol use disorder, history of opiate use disorder Plan: The patient is being discharged from mental health unit today. He plans to stay at the local assisted. He plans to follow up with outpatient mental health services including substance abuse treatment. He refuses inpatient chemical dependency treatment at this time. He refuses any medication to address substance use. He is instructed to abstain from any use of our call marijuana or any illicit drug. We discussed that use of these substances elevates his safety risk. He does not require further hospitalization on an involuntary basis. He is appropriate for transition back to outpatient care. He is instructed to return to the hospital any acute safety concerns. Patient Condition at Discharge: Stable Plan - Discharge Summary New Discharge Prescriptions: Continue Nicotine 14Mg/24Hr Patch [Habitrol] 1 patch TRANSDERM DAILY #7 patch Discharge Medication List Nicotine 14Mg/24Hr Patch [Habitrol] 1 patch TRANSDERM DAILY #7 patch 09/28/17 [ Rx] Follow up Appointment(s)/Referral(s): None,Stated [Primary Care Provider] - 1-2 days
== END 2017-09-28 13:10 | disposition home or self-care (01) | DRG 897 ==
LOC: EC 13:22 → 3MHU 20:08
PROVIDERS: ADMIT Psychiatry & Neurology Psychiatry; ATTEND Psychiatry & Neurology Psychiatry
DX: F15.259 Other stimulant dependence with stimulant-induced psychotic disorder, unspecified (principal); N17.9 Acute kidney failure, unspecified; R17 Unspecified jaundice; F17.200 Nicotine dependence, unspecified, uncomplicated; Z91.5 Personal history of self-harm; Z88.8 Allergy status to other drugs, medicaments and biological substances; B19.20 Unspecified viral hepatitis C without hepatic coma
CPT/HCPCS: 36415; 71046; 80053; 80306; 80320; 81003; 82075; 82140; 82550; 82553; 83520; 84484; 85025; 85610; 85730; 93005; 96360; 99285

== ENCOUNTER 2017-10-03 19:53 | Emergency (ER) | payer OTHER ==
[2017-10-03 20:07] VITALS: BP 126/74; PULSE 99; RESP 19; TEMP 98.2
--- NOTE | 2017-10-03 20:22 | ED ---
Medical Clearance HPI - General Chief complaint: Medical Clearance Stated complaint: long term clearance Time Seen by Provider: 10/03/17 20:12 Source: patient, police, RN notes reviewed, old records reviewed Mode of arrival: ambulatory - History of Present Illness Initial comments: This is a 27-year-old male the ER for evaluation. Patient's brought in by PD for evaluation regarding medical clearance. Patient's it is not requesting any evaluation, he has no complaints. MD Complaint: medical clearance requested Home medications: Previous Rx's Medication Instructions Recorded Nicotine 14Mg/24Hr Patch [Habitrol] 1 patch TRANSDERM DAILY #7 patch 09/28/17 Allergies/Adverse reactions: Allergies Allergy/AdvReac Type Severity Reaction Status Date / Time ketamine AdvReac Hallucinati Verified 10/03/17 20:07 ons Review of Systems ROS Statement: Those systems with pertinent positive or pertinent negative responses have been documented in the HPI. ROS Other: All systems not noted in ROS Statement are negative. Past Medical History Additional Past Medical History / Comment(s): LOWER BACK PROBLEMS-Chronic back pain. History of Any Multi-Drug Resistant Organisms: None Reported Past Surgical History: No Surgical Hx Reported Past Anesthesia/Blood Transfusion Reactions: No Reported Reaction Past Psychological History: ADD/ADHD Smoking Status: Current every day smoker Past Alcohol Use History: Occasional Past Drug Use History: Methamphetamine - Past Family History Mother Family Medical History: No Reported History Additional Family Medical History / Comment(s): Mother is alive at 45 years old. Father Additional Family Medical History / Comment(s): Degenerative disc disease. Father is alive at the age of 5454 years old. General Exam Limitations: no limitations General appearance: alert, in no apparent distress Head exam: Present: atraumatic, normocephalic, normal inspection Eye exam: Present: normal appearance, PERRL, EOMI. Absent: scleral icterus, conjunctival injection, periorbital swelling ENT exam: Present: normal exam, mucous membranes moist Neck exam: Present: normal inspection. Absent: tenderness, meningismus, lymphadenopathy Respiratory exam: Present: normal lung sounds bilaterally. Absent: respiratory distress, wheezes, rales, rhonchi, stridor Cardiovascular Exam: Present: regular rate, normal rhythm, normal heart sounds. Absent: systolic murmur, diastolic murmur, rubs, gallop, clicks GI/Abdominal exam: Present: soft, normal bowel sounds. Absent: distended, tenderness, guarding, rebound, rigid Extremities exam: Present: normal inspection, full ROM, normal capillary refill. Absent: tenderness, pedal edema, joint swelling, calf tenderness Back exam: Present: normal inspection Neurological exam: Present: alert, oriented X3, CN II-XII intact Psychiatric exam: Present: normal affect, normal mood Skin exam: Present: warm, dry, intact, normal color. Absent: rash Course Vital Signs 10/03/17 20:04 Temperature 98.2 F Pulse Rate 99 Respiratory 19 Rate Blood Pressure 126/74 O2 Sat by Pulse 95 Oximetry - Reevaluation(s) Reevaluation #1: 10/03/17 20:22 Patient has Medical Decision Making - Medical Decision Making 27 male to the ER for evaluation, patient is medically clear for incarceration. Patient can be discharged home Disposition Clinical Impression: Medical clearance for incarceration Disposition: HOME SELF-CARE Condition: Fair Instructions: Medical Clearance for Psychiatric Care (ED) Is patient prescribed a controlled substance at d/c from ED?: No Referrals: None,Stated [Primary Care Provider] - 1-2 days
== END 2017-10-03 20:29 | disposition home or self-care (01) ==
LOC: EC 19:53
DX: F17.200 Nicotine dependence, unspecified, uncomplicated; Z88.4 Allergy status to anesthetic agent
CPT/HCPCS: 99283

== ENCOUNTER 2017-10-25 20:55 | Inpatient (IN) | payer MEDICAID, OTHER ==
--- NOTE | 2017-10-25 21:20 | ED ---
Psych HPI - General Chief Complaint: Psychiatric Symptoms Stated Complaint: MENTAL HEALTH Time Seen by Provider: 10/25/17 21:19 Source: patient, police Mode of arrival: ambulatory - History of Present Illness Initial Comments: 27-year-old male ED by police with a court ordered psychiatric evaluation. Patient admits he has not been following up with psychiatrist and that he was told by the police that he had to come to the ER. She denies any psychiatric history or any history of being on any psychiatric medications. He reports he is not currently on any medications. He reports he drank alcohol yesterday but otherwise does note drugs. Patient only complaint upon arrival is a rash to his left flank which is consistent with bug bites. - Related Data Previous Rx's Medication Instructions Recorded Nicotine 14Mg/24Hr Patch [Habitrol] 1 patch TRANSDERM DAILY #7 patch 09/28/17 Allergies Allergy/AdvReac Type Severity Reaction Status Date / Time ketamine AdvReac Hallucinati Verified 10/03/17 20:07 ons Review of Systems ROS Statement: Those systems with pertinent positive or pertinent negative responses have been documented in the HPI. ROS Other: All systems not noted in ROS Statement are negative. Past Medical History Additional Past Medical History / Comment(s): LOWER BACK PROBLEMS-Chronic back pain. hep c. History of Any Multi-Drug Resistant Organisms: None Reported Past Surgical History: No Surgical Hx Reported Past Anesthesia/Blood Transfusion Reactions: No Reported Reaction Past Psychological History: ADD/ADHD Smoking Status: Current every day smoker Past Alcohol Use History: Occasional Past Drug Use History: Methamphetamine - Past Family History Mother Family Medical History: No Reported History Additional Family Medical History / Comment(s): Mother is alive at 45 years old. Father Additional Family Medical History / Comment(s): Degenerative disc disease. Father is alive at the age of 5454 years old. General Exam Limitations: no limitations General appearance: alert, in no apparent distress Head exam: Present: atraumatic, normocephalic Eye exam: Present: PERRL ENT exam: Present: normal exam Neck exam: Present: full ROM Respiratory exam: Absent: respiratory distress Cardiovascular Exam: Present: regular rate, normal rhythm GI/Abdominal exam: Present: soft. Absent: distended Rectal exam: Present: deferred Extremities exam: Present: full ROM Back exam: Present: full ROM Neurological exam: Present: alert, oriented X3 (Oriented to person, place and events leading up to hospitalization, however seems unaware of the court ordered petition) Psychiatric exam: Present: normal affect, normal mood. Absent: homicidal ideation, suicidal ideation Skin exam: Present: warm, dry, other (Erythematous rash on the left flank with some excoriations, also noted to have small lesions on the arms and legs. Discussed with the patient concerning for bedbugs. He states he is uncertain. Does believe he has multiple mosquito bites.) Course Vital Signs 10/25/17 10/26/17 21:03 02:19 Temperature 98.4 F 98.9 F Pulse Rate 72 71 Respiratory 18 17 Rate Blood Pressure 164/77 134/68 O2 Sat by Pulse 98 98 Oximetry Medical Decision Making - Medical Decision Making Patient was seen and evaluated, history was obtained from the patient and police Breath alcohol was negative Patient is medically cleared for evaluation by EPS No inpatient beds available at this hospital, and addition the patient does have substance abuse and requires stool diagnosis therapy. Patient transferred to [facility] who requested that a petition and served being completed due to the [facility] transfer. A certain was completed stating the patient has a court order for evaluation. - Lab Data Result diagrams: 10/26/17 01:20 10/26/17 01:20 Lab Results 10/25/17 10/25/17 10/26/17 Range/Units 22:22 22:22 01:20 WBC (3.8-10.6) k/uL RBC (4.30-5.90) m/uL Hgb (13.0-17.5) gm/dL Hct (39.0-53.0) % MCV (80.0-100.0) fL MCH (25.0-35.0) pg MCHC (31.0-37.0) g/dL RDW (11.5-15.5) % Plt Count (150-450) k/uL Neutrophils % % Lymphocytes % % Monocytes % % Eosinophils % % Basophils % % Neutrophils # (1.3-7.7) k/uL Lymphocytes # (1.0-4.8) k/uL Monocytes # (0-1.0) k/uL Eosinophils # (0-0.7) k/uL Basophils # (0-0.2) k/uL Sodium 140 (137-145) mmol/L Potassium 4.1 (3.5-5.1) mmol/L Chloride 104 (98-107) mmol/L Carbon Dioxide 26 (22-30) mmol/L Anion Gap 10 mmol/L BUN 14 (9-20) mg/dL Creatinine 1.00 (0.66-1.25) mg/dL Est GFR (CKD-EPI)AfAm >90 (>60 ml/min/1.73 sqM) Est GFR (CKD-EPI)NonAf >90 (>60 ml/min/1.73 sqM) Glucose 107 H (74-99) mg/dL Calcium 10.1 (8.4-10.2) mg/dL Total Bilirubin 2.0 H (0.2-1.3) mg/dL AST 107 H (17-59) U/L ALT 190 H (21-72) U/L Alkaline Phosphatase 53 (38-126) U/L Total Protein 8.0 (6.3-8.2) g/dL Albumin 4.5 (3.5-5.0) g/dL Urine Color Yellow Urine Appearance Clear (Clear) Urine pH 6.5 (5.0-8.0) Ur Specific Burt 1.021 (1.001-1.035) Urine Protein 1+ H (Negative) Urine Glucose (UA) Negative (Negative) Urine Ketones Negative (Negative) Urine Blood Negative (Negative) Urine Nitrite Negative (Negative) Urine Bilirubin Negative (Negative) Urine Urobilinogen <2.0 (<2.0) mg/dL Ur Leukocyte Esterase Negative (Negative) Urine RBC 1 (0-5) /hpf Urine WBC 1 (0-5) /hpf Ur Squamous Epith Cells <1 (0-4) /hpf Hyaline Casts 9 H (0-2) /lpf Urine Mucus Few H (None) /hpf Urine Opiates Screen Not Detected (NotDetected) Ur Oxycodone Screen Not Detected (NotDetected) Urine Methadone Screen Not Detected (NotDetected) Ur Propoxyphene Screen Not Detected (NotDetected) Ur Barbiturates Screen Not Detected (NotDetected) U Tricyclic Antidepress Not Detected (NotDetected) Ur Phencyclidine Scrn Not Detected (NotDetected) Ur Amphetamines Screen Detected H (NotDetected) U Methamphetamines Scrn Detected H (NotDetected) U Benzodiazepines Scrn Not Detected (NotDetected) Urine Cocaine Screen Detected H (NotDetected) U Marijuana (THC) Screen Not Detected (NotDetected) 10/26/17 Range/Units 01:20 WBC 11.1 H (3.8-10.6) k/uL RBC 5.31 (4.30-5.90) m/uL Hgb 16.2 (13.0-17.5) gm/dL Hct 47.0 (39.0-53.0) % MCV 88.5 (80.0-100.0) fL MCH 30.5 (25.0-35.0) pg MCHC 34.5 (31.0-37.0) g/dL RDW 13.6 (11.5-15.5) % Plt Count 248 (150-450) k/uL Neutrophils % 72 % Lymphocytes % 19 % Monocytes % 6 % Eosinophils % 1 % Basophils % 1 % Neutrophils # 8.0 H (1.3-7.7) k/uL Lymphocytes # 2.1 (1.0-4.8) k/uL Monocytes # 0.6 (0-1.0) k/uL Eosinophils # 0.1 (0-0.7) k/uL Basophils # 0.1 (0-0.2) k/uL Sodium (137-145) mmol/L Potassium (3.5-5.1) mmol/L Chloride (98-107) mmol/L Carbon Dioxide (22-30) mmol/L Anion Gap mmol/L BUN (9-20) mg/dL Creatinine (0.66-1.25) mg/dL Est GFR (CKD-EPI)AfAm (>60 ml/min/1.73 sqM) Est GFR (CKD-EPI)NonAf (>60 ml/min/1.73 sqM) Glucose (74-99) mg/dL Calcium (8.4-10.2) mg/dL Total Bilirubin (0.2-1.3) mg/dL AST (17-59) U/L ALT (21-72) U/L Alkaline Phosphatase (38-126) U/L Total Protein (6.3-8.2) g/dL Albumin (3.5-5.0) g/dL Urine Color Urine Appearance (Clear) Urine pH (5.0-8.0) Ur Specific Burt (1.001-1.035) Urine Protein (Negative) Urine Glucose (UA) (Negative) Urine Ketones (Negative) Urine Blood (Negative) Urine Nitrite (Negative) Urine Bilirubin (Negative) Urine Urobilinogen (<2.0) mg/dL Ur Leukocyte Esterase (Negative) Urine RBC (0-5) /hpf Urine WBC (0-5) /hpf Ur Squamous Epith Cells (0-4) /hpf Hyaline Casts (0-2) /lpf Urine Mucus (None) /hpf Urine Opiates Screen (NotDetected) Ur Oxycodone Screen (NotDetected) Urine Methadone Screen (NotDetected) Ur Propoxyphene Screen (NotDetected) Ur Barbiturates Screen (NotDetected) U Tricyclic Antidepress (NotDetected) Ur Phencyclidine Scrn (NotDetected) Ur Amphetamines Screen (NotDetected) U Methamphetamines Scrn (NotDetected) U Benzodiazepines Scrn (NotDetected) Urine Cocaine Screen (NotDetected) U Marijuana (THC) Screen (NotDetected) Disposition Clinical Impression: Medical clearance for psychiatric admission, Depression, Substance abuse Disposition: TRANSFER TO PSYCH HOSP/UNIT Referrals: None,Stated [Primary Care Provider] - 1-2 days Time of Disposition: 02:20
[2017-10-25 22:49] LABS: Amphetamine Screen,Urine Detected (NotDetected); Barbiturate Screen,Urine Not Detected (NotDetected); Benzodiazepines Screen,Urine Not Detected (NotDetected); Cocaine Screen,Urine Detected (NotDetected); Methadone Screen, Urine Not Detected (NotDetected); Opiate Screen,Urine Not Detected (NotDetected); Oxycodone Screen, Urine Not Detected (NotDetected); Phencyclidine Screen,Urine Not Detected (NotDetected); Tricyclic Antidepressant,Urine Not Detected (NotDetected); Urn Cannabinoid Scrn Not Detected (NotDetected)
[2017-10-26 01:21] LABS: Appearance,Urine Clear (Clear); Bilirubin,Urine Negative (Negative); Blood,Urine Negative (Negative); Color,Urine Yellow; Glucose,Urine (UA) Negative (Negative); Hyaline Casts,Urine 9 /lpf (0-2); Ketones,Urine Negative (Negative); Leukocyte Esterase,Urine Negative (Negative); Mucus,Urine Few /hpf; Nitrite,Urine Negative (Negative); PH, Urine 6.5 (5.0-8.0); Protein,Urine 1+ (Negative); RBC,Urine 1 /hpf (0-5); Specific Gravity,Urine 1.021 (1.001-1.035); Squamous Epithelial Cell,Urine <1 /hpf (0-4); Urobilinogen,Urine <2.0 mg/dL (<2.0); WBC,Urine 1 /hpf (0-5)
[2017-10-26 01:30] LABS: Basophils # (A) 0.1 k/uL (0-0.2); Basophils % (A) 1 %; Eosinophils # (A) 0.1 k/uL (0-0.7); Eosinophils % (A) 1 %; HGB 16.2 gm/dL (13.0-17.5); Lymphocytes # (A) 2.1 k/uL (1.0-4.8); Lymphocytes % (A) 19 %; MCH 30.5 pg (25.0-35.0); MCHC 34.5 g/dL (31.0-37.0); MCV 88.5 fL (80.0-100.0); Mean Platelet Volume 7.2; Monocytes # (A) 0.6 k/uL (0-1.0); Monocytes % (A) 6 %; Neutrophils % (A) 72 %; Platelet Count 248 k/uL (150-450); RBC 5.31 m/uL (4.30-5.90); RDW 13.6 % (11.5-15.5); WBC 11.1 k/uL (3.8-10.6)
[2017-10-26 01:37] LABS: ALT 190 U/L (21-72); AST 107 U/L (17-59); Albumin 4.5 g/dL (3.5-5.0); Alkaline Phosphatase 53 U/L (38-126); Anion Gap 10 mmol/L; Blood Urea Nitrogen 14 mg/dL (9-20); Calcium 10.1 mg/dL (8.4-10.2); Carbon Dioxide 26 mmol/L (22-30); Chloride 104 mmol/L (98-107); Glucose 107 mg/dL (74-99); Potassium 4.1 mmol/L (3.5-5.1); Sodium 140 mmol/L (137-145)
[2017-10-26] MEDS ORDERED: MAGNESIUM HYDROXIDE 2,400 MG/10 ML CUP PO PRN (11:43)
[2017-10-26] MEDS ORDERED: ACETAMINOPHEN TAB 325 MG TAB PO PRN (11:43)
[2017-10-26] MEDS ORDERED: MAG HYDROX/AL HYDROX/SIMETH 30 ML CUP PO PRN (11:43)
[2017-10-26 12:01] VITALS: BMI 25.9
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
[2017-10-26] MEDS ORDERED: HYDROCORTISONE 1% OINT 28.35 GM TUBE TOPICAL PRN (15:58)
[2017-10-26] MEDS: MELATONIN 3 MG TABLET PO SCH (20:06)
[2017-10-26] MEDS: diphenhydrAMINE 25 MG CAP PO PRN (20:06)
--- NOTE | 2017-10-27 10:21 | US ---
EXAMINATION TYPE: US liver DATE OF EXAM: 10/27/2017 COMPARISON: NONE CLINICAL HISTORY: Elevated transaminase. Elevated liver enzymes EXAM MEASUREMENTS: Liver Length: 15.1 cm Gallbladder Wall: 0.2 cm CBD: 0.4 cm Right Kidney: 10.0 x 5.4 x 6.1 cm Technical limitations due to large amount of overlying bowel content Pancreas: Obscured by bowel gas Liver: visualized portions appear wnl, best seen intercostally Gallbladder: no evidence of stones Evidence for sonographic Parra's sign: no CBD: wnl as visualized Right Kidney: no evidence of hydronephrosis The pancreas is not visualized. The liver is normal in size without evidence of biliary dilatation. The gallbladder is unremarkable without evidence of cholelithiasis. The gallbladder wall measures 2 m m. The distal common hepatic duct measures 4 mm. There is no sonographic Parra's sign. Right kidney is unremarkable. IMPRESSION: LIMITED BUT OTHERWISE NORMAL RIGHT UPPER QUADRANT ULTRASOUND.
[2017-10-27 11:18] LABS: Cholesterol 124 mg/dL (<200); HDL Cholesterol 37 mg/dL (40-60); LDL Cholesterol,Calculated 72 mg/dL (0-99); Triglycerides 77 mg/dL (<150)
--- NOTE | 2017-10-27 11:40 | P.PN ---
Progress Note - Text Progress Note Date: 10/27/17 Interval history: Patient is seen in cross coverage today. He is found in his room lying in bed. He is cooperative to be interviewed in his room. He reports that he slept well last night. He relates he is admitted to the hospital because he missed an appointment. He reports that his mood is doing okay. He is not currently on psychotropic medication. Mental status exam: He is found in his room lying in bed. He is alert and cooperative with the interview in his room. He describes his mood is all right. He denies any thoughts of harm to self or others. He does not verbalize any hallucinations or maggi delusions. He does not show any agitation. Plan: We'll continue to cover this patient thru the weekend and continue to monitor his status. No new changes in treatment at this time.
[2017-10-27 17:26] LABS: Hepatitis A Antibody IgM Non-Reactive (Non-Reactive); Hepatitis B Core IgM Non-Reactive (Non-Reactive)
[2017-10-27] MEDS: diphenhydrAMINE 25 MG CAP PO PRN (20:33)
[2017-10-27] MEDS: MELATONIN 3 MG TABLET PO SCH (20:33)
--- NOTE | 2017-10-28 14:53 | P.PN ---
Progress Note - Text Progress Note Date: 10/28/17 Interval history: Patient is found in his room lying in bed. He is agreeable to talk to me in the room. He reports that he slept okay last night. His mood is doing all right. He did have breakfast and lunch. Mental status exam: He is alert and cooperative. His answers are brief. His mood he describes as all right. He denies any thoughts of harm to self or others. He does not verbalize any hallucinations or bothersome thoughts. He does not show any agitation. Plan: We'll continue to monitor patient's status, currently not on psychotropic medication.
[2017-10-28] MEDS: MELATONIN 3 MG TABLET PO SCH (20:13)
[2017-10-28] MEDS: diphenhydrAMINE 25 MG CAP PO PRN (20:13)
--- NOTE | 2017-10-29 10:09 | P.PN ---
Progress Note - Text Progress Note Date: 10/29/17 Interval History: Patient is a 27-year-old male who was found in his room sleeping and came to the interview room. Patient states that he is not been attending groups because he sleeping all day because he been working a lot and feeling tired. Patient states that he continues to not be interested in inpatient rehab programs stating that he has outpatient rehab scheduled. Patient reported no symptoms currently. Mental Status: Appearance/Attitude: Patient is casually dressed, found in his room sleeping comes to the interview room makes intermittent eye contact and was cooperative. Behavior: Patient does not exhibit any psychomotor agitation or retardation. Speech/Language: Patient's speech is spontaneous and normal volume and rhythm and he is coherent. Thought Process: Patient is goal-directed although his responses are brief with limited elaboration. Thought Content: Patient denies auditory or visual hallucinations and no delusions or paranoid ideation or elicited. Patient states that he is sleeping all the time because he was working so much prior to coming into the hospital. Patient reports a good appetite. Suicidal/Homicidal Ideation: Patient denies any current suicidal or homicidal ideation Sensorium/Cognition: Patient is alert and oriented to person, place, and time and recent and remote memory are grossly intact Mood/Affect: Patient's mood is disinterested his affect is appropriate Insight/Judgment: Patient's insight and judgment are fair Assessment: Patient is sleeping during the day not attending groups or activities, he has a good appetite. Patient denies all psychotic symptoms and none are elicited. Patient denies any suicidal or homicidal ideation at this time. Patient continues to decline a referral for inpatient rehab services stating he has outpatient rehab set up. Patient is not currently on any psychotropic medication as there are no depressive or manic symptoms elicited either. Plan: Patient continues in the hospital awaiting a court date for his demand for hearing. Continue to encourage patient to consider inpatient rehab programs.
[2017-10-29 11:45] LABS: HIV 1 AB Non-Reactive (Non-Reactive); HIV AB P24 Non-Reactive (Non-Reactive); HIV P24 AG Non-Reactive (Non-Reactive)
[2017-10-29] MEDS: MELATONIN 3 MG TABLET PO SCH (20:08)
[2017-10-29 21:07] LABS: Appearance,Urine Clear (Clear); Bilirubin,Urine Negative (Negative); Blood,Urine Negative (Negative); Color,Urine Light Yellow; Glucose,Urine (UA) Negative (Negative); Ketones,Urine Negative (Negative); Leukocyte Esterase,Urine Negative (Negative); Nitrite,Urine Negative (Negative); Protein,Urine Negative (Negative); Specific Gravity,Urine 1.013 (1.001-1.035); Urobilinogen,Urine <2.0 mg/dL (<2.0)
--- NOTE | 2017-10-30 16:00 | P.PN ---
Progress Note - Text Progress Note Date: 10/30/17 Interval History: Patient is a 27-year-old male who was seen today and he reports that he went to one appointment at [facility] where he is been referred after his last 3 discharges from this hospital this year. Patient states that he hasn't gone to them because he is too busy trying to work. Patient reports that he went to several groups yesterday otherwise he's been in his room sleeping. Mental Status: Appearance/Attitude: Patient is casually dressed, makes intermittent eye contact and is cooperative Behavior: Patient does not exhibit any psychomotor agitation or retardation. Speech/Language: Patient's speech is of normal volume and rhythm and he is coherent Thought Process: Patient is goal-directed although his answers are limited with little elaboration Thought Content: Denies any auditory or visual hallucinations no delusions or paranoid ideation or elicited. Patient states that he sleeping because he is tired from all working he has been doing. Patient's appetite is within normal limits. Suicidal/Homicidal Ideation: Patient denies any current suicidal or homicidal ideation Sensorium/Cognition: Patient is alert and oriented to person, place, and time and his recent and remote memory are grossly intact Mood/Affect: Patient's mood is bland and his affect is appropriate Insight/Judgment: Patient's insight and judgment are fair Assessment: Patient continues to spend the bulk of his time in bed attended a few groups yesterday otherwise is sleeping in his room he states that this is because he's been working and is tired. Patient continues to decline referrals for inpatient substance rehab stating that he needs to get back out and start working again. Plan: In reviewing the patient's chart in August when the patient was admitted to the inpatient psychiatric unit he was to have a hearing for substance use treatment order on August 31 at 9 AM. Patient is supposed to have been going to [facility] and he states he attended 1 meeting there and has not gone since that time. Patient has been admitted here in August one time and September twice and on all 3 admissions and this current admission his drug screen is positive for methamphetamines and amphetamines. A letter asking for a dismissal of the demand hearing for mental health was sent to the court today. A court order for substance use treatment was obtained in August, patient was supposed to be following up with the [facility] for human resources.
[2017-10-30] MEDS: MELATONIN 3 MG TABLET PO SCH (20:05)
--- NOTE | 2017-10-31 15:44 | P.PN ---
Progress Note - Text Progress Note Date: 10/31/17 Interval History: Patient is a 27-year-old male who was seen today, I asked the patient he was aware that he was on a treatment order for substance use treatment he said now. Patient states he is never heard of RN has never been . Patient reports that he is not having any suicidal thoughts, no homicidal thoughts is not feeling depressed or anxious. Patient is eating and sleeping well. He states he attends some groups in the afternoons. Mental Status: Appearance/Attitude: Patient is casually dressed, makes good eye contact and is cooperative. Behavior: Not exhibit any psychomotor agitation or retardation. Speech/Language: Patient's speech is spontaneous of normal volume and rhythm and he is coherent. Thought Process: Patient is goal-directed there is evidence of loose association or flight of ideas Thought Content: Patient denies any auditory or visual hallucinations no delusions or paranoid ideation or elicited. Patient states that he is not feeling anxious, states he is eating and sleeping well. Suicidal/Homicidal Ideation: Denies any current suicidal or homicidal ideation Sensorium/Cognition: Patient is alert and oriented to person, place, time and his recent and remote memory are grossly intact. Mood/Affect: Patient's mood is euthymic and his affect is appropriate Insight/Judgment: Patient's insight and judgment are fair Assessment: Patient states that he is unaware he was on a treatment order for substance use treatment states that he is never been to [facility]. Patient does state he went to [facility] he thinks on one occasion but does not recall. Patient stated that he doesn't have time to keep his appointments because his aunt who has mental health problems always needs to go to [facility] and he takes her. Patient is not reporting any psychotic symptoms, anxiety symptoms and is not reporting being depressed. Patient states his appetite and sleep are good. Patient attends some groups in the late afternoon Plan: Patient is not currently on any medication, judged denied a dismissal of the demand for hearing patient's hearing is scheduled this Sunday at 9 AM.
[2017-10-31] MEDS: MELATONIN 3 MG TABLET PO SCH (20:10)
[2017-11-01 07:21] VITALS: BP 96/57; PULSE 64; RESP 16; TEMP 98
--- NOTE | 2017-11-01 11:35 | P.DS ---
Providers Date of admission: 10/26/17 11:03 Expected date of discharge: 11/01/17 Attending physician: Darby Vincent MD Consults: 10/26/17 11:43 Consult Physician Routine Consulting Provider: [facility] Consult Reason/Comments: history and physical Do you want consulting provider notified?: Yes Primary care physician: Stated None Hospital Course: Discharge Diagnosis: Amphetamine use disorder, moderate Reason for Admission: Patient is a 27-year-old male who was brought in on a pickup order for noncompliance with appointments at [facility]. Patient states he misses appointments because he is busy working in [place] and helping his grandmother packed to move to [place]. Patient was most recently here in the hospital twice in September and once in August of this year. Patient states that he has not been on any medication as he declined it during his last admission. Patient has been using methamphetamine he states 2- 3 days ago, also took some Adderall given to him by a friend and drinks about a pint of alcohol every other weekend. Patient's UDS was positive for cocaine and he states that must've been mixed in with something. Patient states he missed his appointments and didn't understand that he needed to comply with that he would be brought back to the hospital. Patient denies any auditory or visual hallucinations states he is sleeping and eating well. He denies any paranoid ideations no suicidal thoughts no homicidal thoughts and states he has no history of suicide attempts. Patient at this time states that he has no symptoms just that he needed something to help him sleep. Patient does not endorse a history of manic symptoms, psychotic symptoms or depressive symptoms outside of his intoxication with drugs or withdrawal from drugs. Mental status on Admission: Appearance/Attitude: Patient is casually dressed, appears tired as he was sound asleep when I went to approach him for this interview, makes intermittent eye contact and is cooperative. Behavior: Patient does not exhibit any psychomotor agitation or retardation Speech/Language: Patient's speech is spontaneous of normal volume and rhythm and he is coherent Thought Process: Patient is goal-directed there is no evidence of loose association or flight of ideas Thought Content: Patient denies any auditory or visual hallucinations no delusions or paranoid ideation or elicited. Patient states that he has been sleeping and eating and then requested something to help him sleep. Suicidal/Homicidal Ideation: Patient denies any current suicidal or homicidal ideation Sensorium/Cognition: Patient is alert and oriented to person, place, and time and his recent and remote memory are grossly intact Mood/Affect: Patient's mood is stable and his affect is appropriate Insight/Judgment: Patient's insight and judgment are fair Hospital Course: Patient was admitted on a demand for hearing, patient was placed on routine observation, group and activity therapy were ordered. Patient had routine laboratory studies as well as a medical consultation. Patient was not experiencing any psychotic symptoms, depressive symptoms, manic symptoms and no psychotropic medication was prescribed. Patient initially spent the bulk of his day in his room sleeping, he eventually would come out of his room and attend groups later in the afternoon. Patient was eating. Patient eventually began attending groups later in the afternoon. Patient did not exhibit any symptoms of psychosis, depression, ronni. Patient declined referral for inpatient rehab programs. Patient was having hearing on November 02 over the hearing was changed to November 07 and patient will be discharged today. Allergies ketamine Adverse Reaction (Verified 10/26/17 13:42) Hallucinations Laboratory Last Values WBC 11.1 k/uL (3.8-10.6) H 10/26/17 01:20 RBC 5.31 m/uL (4.30-5.90) 10/26/17 01:20 Hgb 16.2 gm/dL (13.0-17.5) 10/26/17 01:20 Hct 47.0 % (39.0-53.0) 10/26/17 01:20 MCV 88.5 fL (80.0-100.0) 10/26/17 01:20 MCH 30.5 pg (25.0-35.0) 10/26/17 01:20 MCHC 34.5 g/dL (31.0-37.0) 10/26/17 01:20 RDW 13.6 % (11.5-15.5) 10/26/17 01:20 Plt Count 248 k/uL (150-450) 10/26/17 01:20 Neutrophils % 72 % 10/26/17 01:20 Lymphocytes % 19 % 10/26/17 01:20 Monocytes % 6 % 10/26/17 01:20 Eosinophils % 1 % 10/26/17 01:20 Basophils % 1 % 10/26/17 01:20 Neutrophils # 8.0 k/uL (1.3-7.7) H 10/26/17 01:20 Lymphocytes # 2.1 k/uL (1.0-4.8) 10/26/17 01:20 Monocytes # 0.6 k/uL (0-1.0) 10/26/17 01:20 Eosinophils # 0.1 k/uL (0-0.7) 10/26/17 01:20 Basophils # 0.1 k/uL (0-0.2) 10/26/17 01:20 Sodium 140 mmol/L (137-145) 10/26/17 01:20 Potassium 4.1 mmol/L (3.5-5.1) 10/26/17 01:20 Chloride 104 mmol/L (98-107) 10/26/17 01:20 Carbon Dioxide 26 mmol/L (22-30) 10/26/17 01:20 Anion Gap 10 mmol/L 10/26/17 01:20 BUN 14 mg/dL (9-20) 10/26/17 01:20 Creatinine 1.00 mg/dL (0.66-1.25) 10/26/17 01:20 Est GFR (CKD-EPI)AfAm >90 (>60 ml/min/1.73 sqM) 10/26/17 01:20 Est GFR (CKD-EPI)NonAf >90 (>60 ml/min/1.73 sqM) 10/26/17 01:20 Glucose 107 mg/dL (74-99) H 10/26/17 01:20 Calcium 10.1 mg/dL (8.4-10.2) 10/26/17 01:20 Ferritin 227.5 ng/mL (22.0-322.0) 10/27/17 10:55 Total Bilirubin 2.0 mg/dL (0.2-1.3) H 10/26/17 01:20 AST 107 U/L (17-59) H 10/26/17 01:20 ALT 190 U/L (21-72) H 10/26/17 01:20 Alkaline Phosphatase 53 U/L (38-126) 10/26/17 01:20 Total Protein 8.0 g/dL (6.3-8.2) 10/26/17 01:20 Albumin 4.5 g/dL (3.5-5.0) 10/26/17 01:20 Triglycerides 77 mg/dL (<150) 10/27/17 10:55 Cholesterol 124 mg/dL (<200) 10/27/17 10:55 LDL Cholesterol, Calc 72 mg/dL (0-99) 10/27/17 10:55 HDL Cholesterol 37 mg/dL (40-60) L 10/27/17 10:55 Urine Color Light Yellow 10/29/17 20:55 Urine Appearance Clear (Clear) 10/29/17 20:55 Urine pH 5.0 (5.0-8.0) 10/29/17 20:55 Ur Specific [place] 1.013 (1.001-1.035) 10/29/17 20:55 Urine Protein Negative (Negative) 10/29/17 20:55 Urine Glucose (UA) Negative (Negative) 10/29/17 20:55 Urine Ketones Negative (Negative) 10/29/17 20:55 Urine Blood Negative (Negative) 10/29/17 20:55 Urine Nitrite Negative (Negative) 10/29/17 20:55 Urine Bilirubin Negative (Negative) 10/29/17 20:55 Urine Urobilinogen <2.0 mg/dL (<2.0) 10/29/17 20:55 Ur Leukocyte Esterase Negative (Negative) 10/29/17 20:55 Urine RBC 1 /hpf (0-5) 10/25/17 22:22 Urine WBC 1 /hpf (0-5) 10/25/17 22:22 Ur Squamous Epith Cells <1 /hpf (0-4) 10/25/17 22:22 Hyaline Casts 9 /lpf (0-2) H 10/25/17 22:22 Urine Mucus Few /hpf (None) H 10/25/17 22:22 Urine Opiates Screen Not Detected (NotDetected) 10/25/17 22:22 Ur Oxycodone Screen Not Detected (NotDetected) 10/25/17 22:22 Urine Methadone Screen Not Detected (NotDetected) 10/25/17 22:22 Ur Propoxyphene Screen Not Detected (NotDetected) 10/25/17 22:22 Ur Barbiturates Screen Not Detected (NotDetected) 10/25/17 22:22 U Tricyclic Antidepress Not Detected (NotDetected) 10/25/17 22:22 Ur Phencyclidine Scrn Not Detected (NotDetected) 10/25/17 22:22 Ur Amphetamines Screen Detected (NotDetected) H 10/25/17 22:22 U Methamphetamines Scrn Detected (NotDetected) H 10/25/17 22:22 U Benzodiazepines Scrn Not Detected (NotDetected) 10/25/17 22:22 Urine Cocaine Screen Detected (NotDetected) H 10/25/17 22:22 U Marijuana (THC) Screen Not Detected (NotDetected) 10/25/17 22:22 Treponema pallidum Ab Non-Reactive (Non-Reactive) 10/27/17 10:55 Hepatitis A IgM Ab Non-Reactive (Non-Reactive) 10/27/17 10:55 Hep Bs Antigen Non-Reactive (Non-Reactive) 10/27/17 10:55 Hep B Core IgM Ab Non-Reactive (Non-Reactive) 10/27/17 10:55 Hep C IgG Ab Reactive (Non-Reactive) H 10/27/17 10:55 HIV-1 Antibody Non-Reactive (Non-Reactive) 10/27/17 10:55 HIV Ag/Ab Interpret 10/27/17 10:55 HIV p24 Antibody Non-Reactive (Non-Reactive) 10/27/17 10:55 HIV-2 Antibody Non-Reactive (Non-Reactive) 10/27/17 10:55 HIV P24 Antigen Non-Reactive (Non-Reactive) 10/27/17 10:55 Discharge Mental Status: Appearance/Attitude: Patient is casually dressed, makes good eye contact and was cooperative Behavior: Patient did not exhibit any psychomotor agitation or retardation. Speech/Language: Patient's speech was spontaneous of normal volume and rhythm and he is coherent Thought Process: Patient is goal-directed there is no evidence of loose association or flight of ideas. Thought Content: Patient denies any auditory or visual hallucinations and no delusions or paranoid ideation or elicited. Patient states that he is eating and sleeping well. Suicidal/Homicidal Ideation: Patient denies any current suicidal or homicidal ideation Sensorium/Cognition: Patient is alert and oriented to person, place, and time and his recent and remote memory are grossly intact Mood/Affect: Patient's mood is euthymic and his affect is appropriate Insight/Judgment: Patient's insight and judgment are fair, patient declines referrals for inpatient rehab programs. Risk Assessment: Patient's risk for readmission is high should he not be compliant with follow-up appointments and continue to use drugs and/or alcohol. Discharge Plan: Patient will be discharged to return to his home, no psychotropic medications are prescribed. Patient was encouraged to avoid all alcohol and drugs. Patient was encouraged to follow up at [facility] for outpatient rehab. Patient is aware that he has a court hearing next Sunday and needs to attend, patient was also advised that he is on court order for substance use treatment. Patient has an appointment at [facility] on 11/02/17. Patient Condition at Discharge: Stable Plan - Discharge Summary Discharge Rx Participant: No New Discharge Prescriptions: Continue No Known Home Medications Discharge Medication List No Known Home Medications 10/26/17 [History] Follow up Appointment(s)/Referral(s): [facility] [Outside] - 11/02/17 12:00 pm (11/02/17 at 1200 w/intake ) None,Stated [Primary Care Provider] - 1-2 days Patient Instructions/Handouts: How to Stop Smoking (DC) Activity/Diet/Wound Care/Special Instructions: Remove all weapons and firearms from the home; Refrain from street drugs and alcohol; Diet and activity as tolerated; Follow-up with your PCP in 1-2 days; Keep all scheduled follow-up appointments for continuity of care; Contact your PCP for medical med. prescription refills or your aftercare psychiatrist for psych med. refills; If you have any problems, call the Crisis Line at [phone] or [phone] in case of emergency or go to the nearest ER for a psychiatric evaluation. Discharge Disposition: HOME SELF-CARE
== END 2017-11-01 13:14 | disposition home or self-care (01) | DRG 897 ==
LOC: EC 20:55 → 3MHU 10-26 11:03
PROVIDERS: ADMIT Psychiatry & Neurology Psychiatry; ATTEND Psychiatry & Neurology Psychiatry
DX: F15.19 Other stimulant abuse with unspecified stimulant-induced disorder (principal); F14.19 Cocaine abuse with unspecified cocaine-induced disorder; F19.10 Other psychoactive substance abuse, uncomplicated; R21 Rash and other nonspecific skin eruption; F17.200 Nicotine dependence, unspecified, uncomplicated; Z88.4 Allergy status to anesthetic agent; F11.11 Opioid abuse, in remission; F90.9 Attention-deficit hyperactivity disorder, unspecified type; R45.850 Homicidal ideations; W57.XXXA Bitten or stung by nonvenomous insect and other nonvenomous arthropods, initial encounter; Z02.89 Encounter for other administrative examinations; Z91.19 Patient's noncompliance with other medical treatment and regimen; Z65.3 Problems related to other legal circumstances; B19.20 Unspecified viral hepatitis C without hepatic coma
CPT/HCPCS: 36415; 76705; 80053; 80061; 80074; 80306; 81001; 81003; 82075; 82728; 85025; 86780; 87390; 99284; 99285